=== PATIENT | male | born 1940 | race Caucasian/White ===

== ENCOUNTER 2018-03-03 17:18 | Emergency (ER) | payer MEDICARE ==
[2018-03-03] MEDS ORDERED: solu-MEDROL 125 MG (18:24)
[2018-03-03] MEDS ORDERED: Rocephin 1000 MG INJ (18:24)
[2018-03-03] MEDS: solu-MEDROL 125 MG IM (18:31)
[2018-03-03] MEDS: Rocephin 1000 MG INJ IM (18:31)
== END 2018-03-03 19:18 | disposition home or self-care (01) ==
LOC: ED 17:18
CPT/HCPCS: 96372; J0696; J2930

== ENCOUNTER 2018-03-26 11:11 | Observation (INO) | payer MEDICARE ==
[2018-03-26] MEDS ORDERED: MORPHINE SULFATE 4 MG INJ IM ONE ×3 (11:37→12:59)
[2018-03-26] MEDS ORDERED: Phenergan 25 MG INJ IM ONE (11:37)
--- NOTE | 2018-03-26 11:43 | ERPHSYRPT ---
- History of Present Illness Time Seen by Provider: 03/26/18 11:38 Source: patient Physician History: 77-year-old white male with history of CVA, cataracts, high blood pressure, COPD , sleep apnea, diabetes. Patient arrives with complaint of pain in his lower back described as sharp radiating across the back symptoms since yesterday. Patient states he was sitting on the stool, turned and twisted his back he complains of the above noted pain. Past medical history includes CVA, cataracts, high blood pressure, COPD, sleep apnea, diabetes type 2, osteoarthritis, GERD, GI bleed, hemorrhoids, polyps, prostate problems. Past surgical history includes cardiac catheter, cholecystectomy, orthopedic surgery, arthroscopy cartilage removed from the right knee, liver surgery, infection trimmed off of his liver secondary to gallbladder , Eardrum surgery Social history former smoker Patient states he saw a chiropractor yesterday. Patient states he took some Flexeril and Flushing which she had at home. Inspect was examined on this patient patient last filled the prescription for [place] 5/325 in August of this year. Timing/Duration: yesterday Allergies/Adverse Reactions: amlodipine besylate [From Evan] Allergy (Intermediate, Verified 03/26/18 11:33) Swelling LEG SWELLING olmesartan medoxomil [From Evan] Allergy (Intermediate, Verified 03/26/18 11:33) Swelling LEG SWELLING clonidine Allergy (Unknown, Verified 03/26/18 11:33) Swelling TONGUE SWELLING Iodinated Contrast- Oral and IV Dye Adverse Reaction (Unknown, Verified 11:33) will damage kidneys- do not give without hydration Home Medications: Bumetanide 1 mg PO DAILY #0 07/17/12 [History] Tamsulosin HCl 0.4 mg [Flomax 0.4 MG] 0.4 mg PO DAILY #0 07/17/12 [History ] Insulin Glargine,Hum.rec.anlog [Lantus] 76 unit SQ HS #0 07/18/12 [History] Insulin Lispro [Humalog] 40 - 44 unit SQ BREAKFAST #0 07/18/12 [History] Insulin Lispro [Humalog] 40 - 44 unit SQ LUNCH #0 07/18/12 [History] Insulin Lispro [Humalog] 50 units SQ DINNER #0 07/18/12 [History] Spironolactone 25 mg [Aldactone 25 MG] 25 mg PO DAILY 10/15/13 [History] Allopurinol 100 mg [Zyloprim 100 mg] 200 mg PO QAM 03/21/16 [History] Atorvastatin Calcium [Lipitor] 40 mg PO DAILY 03/21/16 [History] Hydrocodone Bit/Acetaminophen [Hydrocodon-Acetaminophn 10-325] 1 each PO Q6HPRN PRN 03/21/16 [History] Lisinopril 5 mg [Zestril 5 MG] 5 mg PO DAILY 03/21/16 [History] Hx Tetanus, Diphtheria Vaccination/Date Given: Yes Hx Influenza Vaccination/Date Given: No Hx Pneumococcal Vaccination/Date Given: Yes - Review of Systems Constitutional: No Fever, No Chills Eyes: No Symptoms Ears, Nose, & Throat: No Symptoms Respiratory: No Cough, No Dyspnea Cardiac: No Chest Pain, No Edema, No Syncope Abdominal/Gastrointestinal: No Abdominal Pain, No Nausea, No Vomiting, No Diarrhea Genitourinary Symptoms: No Dysuria Musculoskeletal: Back Pain Skin: No Rash Neurological: No Dizziness, No Focal Weakness, No Sensory Changes Psychological: No Symptoms Endocrine: No Symptoms All Other Systems: Reviewed and Negative - Past Medical History Pertinent Past Medical History: No Neurological History: Stroke ENT History: Cataracts Cardiac History: Hypertension Respiratory History: COPD, Sleep Apnea Endocrine Medical History: Diabetes Type II Musculoskeletal History: Osteoarthritis GI Medical History: GERD, GI Bleed, Hemorrhoids, Polyps History: Other Psycho-Social History: No Pertinent History Male Reproductive Disorders: Prostate Problems Other Medical History: CVA 7-10 years ago - Past Surgical History Past Surgical History: Yes Neuro Surgical History: No Pertinent History Cardiac: Cardiac Catheterization Respiratory: No Pertinent History Gastrointestinal: Cholecystectomy Genitourinary: No Pertinent History Musculoskeletal: Orthopedic Surgery Male Surgical History: No Pertinent History Other Surgical History: arthroscopy with cartlage removal of right knees,. surgery done on liver- infection trimmed off liver from complications from gallbadder removal. right ear drum/canal/ear bone surgery 03/01/16 - Social History Smoking Status: Former smoker How long have you smoked: 10years Exposure to second hand smoke: No Drug Use: none Patient Lives Alone: No - Nursing Vital Signs Nursing Vital Signs: Initial Vital Signs Temperature 97.7 F 03/26/18 11:29 Pulse Rate 104 H 03/26/18 11:29 Respiratory Rate 104 H 03/26/18 11:29 Blood Pressure 195/90 03/26/18 11:29 O2 Sat by Pulse Oximetry 95 03/26/18 11:29 Pain Scale Pain Intensity [] 8 Pain Intensity 6 - Physical Exam General Appearance: other (well-developed obese white male, alert oriented 3) Eye Exam: PERRL/EOMI, eyes nml inspection Ears, Nose, Throat Exam: normal ENT inspection, TMs normal, pharynx normal, moist mucous membranes Neck Exam: normal inspection, non-tender, supple, full range of motion Respiratory Exam: normal breath sounds, lungs clear, No respiratory distress Cardiovascular Exam: regular rate/rhythm, normal heart sounds, normal peripheral pulses Gastrointestinal/Abdomen Exam: soft, normal bowel sounds, No tenderness, No mass Back Exam: other (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 No new acute lumbar spine compression fracture. However there is new grade 1 spondylolisthesis of L3 over L4 and stable grade 1 anterior spondylolisthesis of L4 over L5. No gross spondylolysis has seen. However there is moderate posterior facet joint arthropathy at the lower 3 lumbar interspace levels. 2. There is mild degenerative disc disease at L1-L2 and moderate to marked degenerative disc disease at L2-L3. This has slightly progressed as compared to December 28, 2016. 3. 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 On the standing AP minimal right lateral subluxation of with respect L1 and L3 with respect to L4. This may be due to a combination of the degenerative spondylosis and stress reaction from the mild rotary dextroscoliosis.) Ordered Tests: Active Orders 24 hr Category Date Time Status LUMBAR LIMITED (2 OR 3 VIEWS) Stat Exams 03/26/18 12:21 Completed Medication Summary Discontinued Medications Generic Name Dose Route Start Last Admin Trade Name Carlita PRN Reason Stop Dose Admin Morphine Sulfate 4 mg 03/26/18 11:37 03/26/18 11:45 Morphine Sulfate 4 Mg Inj IM 03/26/18 11:38 4 mg STAT ONE Administration Morphine Sulfate Confirm 03/26/18 11:44 Morphine Sulfate 4 Mg Inj Administered 03/26/18 11:45 Dose 4 mg .ROUTE .STK-MED ONE Morphine Sulfate 4 mg 03/26/18 12:25 03/26/18 12:27 Morphine Sulfate 4 Mg Inj IV 03/26/18 12:26 Not Given STAT ONE Morphine Sulfate 4 mg 03/26/18 12:26 03/26/18 12:30 Morphine Sulfate 4 Mg Inj IM 03/26/18 12:27 4 mg STAT ONE Administration Morphine Sulfate Confirm 03/26/18 12:29 Morphine Sulfate 4 Mg Inj Administered 03/26/18 12:30 Dose 4 mg .ROUTE .STK-MED ONE Morphine Sulfate 4 mg 03/26/18 12:59 03/26/18 13:16 Morphine Sulfate 4 Mg Inj IM 03/26/18 13:00 4 mg STAT ONE Administration Morphine Sulfate Confirm 03/26/18 13:13 Morphine Sulfate 4 Mg Inj Administered 03/26/18 13:14 Dose 4 mg .ROUTE .STK-MED ONE Orphenadrine Citrate 60 mg 03/26/18 12:59 03/26/18 13:17 Norflex 60 Mg/2 Ml IM 03/26/18 13:00 60 mg STAT ONE Administration Orphenadrine Citrate Confirm 03/26/18 13:13 Norflex 60 Mg/2 Ml Administered 03/26/18 13:14 Dose 60 mg .ROUTE .STK-MED ONE Promethazine HCl 25 mg 03/26/18 11:37 03/26/18 11:45 Phenergan 25 Mg Inj IM 03/26/18 11:38 25 mg STAT ONE Administration Promethazine HCl Confirm 03/26/18 11:44 Phenergan 25 Mg Inj Administered 03/26/18 11:45 Dose 25 mg .ROUTE .STK-MED ONE - Progress Progress: improved Progress Note: 03/26/18 13:00 77-year-old white male with history of CVA, cataracts, high blood pressure, COPD , sleep apnea, diabetes. Arrives with complaint of low back pain worse with movement located in midline and across the back lumbar region after turning while using the toilet yesterday. He apparently has been seen by a chiropractor yesterday he states he took some Flushing at home which he has he states he has this dedication at home and has approximately 30 pills left. He also took 2 Flexeril tablets yesterday he states he is out of this. Patient has no neurologic findings he is tender with palpation in the low lumbar region bilaterally and over midline also tender in the area with the movement. Patient has full range of motion to all extremities. X-ray of the patient's lumbar series is remarkable for grade 1 spondylolisthesis of L3 over L4 which appears to be new and stable grade 1 anterior spondylolisthesis of L4 over L5 there is no gross spondylolysis. There is moderate posterior facet joint arthropathy at the lower 3 lumbar interspace levels. There is also mild degenerative disc disease at L1-L2 and moderate to marked edema degenerative disc disease at L2-L3 this appears to have slightly progressed since December 28, 2016. Patient also has mild dextro scoliosis centered at L2-L3 and on the standing AP view there is minimal right lateral subluxation of L2 with respect to L1 and L3 with respect to L4 this may be due to a combination of the degenerative spondylosis and stress reaction from the mild rotary dextroscoliosis. Patient has been given morphine a total of 12 mg IM. In 4 mg increments the last one has just been ordered. I had planned to send the patient home however he states that he doesn't think that he can take care of himself at home or get around and is worried about pain control at home. I've discussed the patient's case with Dr. Wade who is covering for Dr. Tabares. Will place patient on observation. Will write for morphine for pain Phenergan for nausea. Will obtain CBC CMP UA on the floor. - Departure Time of Disposition: 13:26 Departure Disposition: Observation Clinical Impression: Back pain Qualifiers: Back pain location: low back pain Chronicity: acute Back pain laterality: bilateral Sciatica presence: without sciatica Qualified Code(s): M54.5 - Low back pain Condition: Fair Critical Care Time: No Referrals: ASHISH TABARES [Primary Care Provider] - Instructions: Low Back Pain (DC)
[2018-03-26] MEDS ORDERED: MORPHINE SULFATE 4 MG INJ ONE ×3 (11:44→13:13)
[2018-03-26] MEDS ORDERED: Phenergan 25 MG INJ ONE (11:44)
[2018-03-26] MEDS ORDERED: MORPHINE SULFATE 4 MG INJ IV ONE (12:25)
--- NOTE | 2018-03-26 12:57 | XRAY ---
Exam: Standing 3 view lumbar spine series from 03/26/2018. Five-view lumbar spine series from 12/28/2016. Indication: 77-year-old male with back pain, no known injury. Limited movement. Findings: Standing AP and 2 standing lateral radiographs were obtained. There are 5 [id number] lumbar-type vertebra. There is a mild rotary dextroscoliosis centered at L2-L3. Surgical clips consistent with prior cholecystectomy are noted. I note at least moderate narrowing of the L2-L3 interspace height, some calcification within the L2-L3 disc, and mild anterior lateral and posterior vertebral endplate spurring indicative of moderate to marked degenerative disc disease at this level. This has slightly progressed as compared to 12/28/2016. An acute lumbar spine compression fracture is not seen. However, I note grade 1 anterior spondylolisthesis of L3 over L4 and L4 over L5. This is unchanged at L4-L5, but new at L3-L4. A definite spondylolysis is not seen, although there is advanced facet joint arthropathy at the lower 3 lumbar interspace levels. The lower 3 lumbar interspace heights are fairly well-maintained representing no change. Mild anterior lateral vertebral endplate spurring is seen at the lower 3 lumbar interspaces. I note moderate anterior lateral vertebral endplate spurring at L1-L2. There is also minimal right lateral subluxation of L2 with respect to L1 and L3 with respect to L4 on the AP standing view, probably due to the degenerative disc/joint disease and perhaps stress reaction from the rotary dextroscoliosis. Some vascular calcification is seen within the distal abdominal aorta representing no change. Impression: 1. The current study was obtained in the upright projection. I see no acute lumbar spine compression fracture. However, there is new grade 1 spondylolisthesis of L3 over L4 and stable grade 1 anterior spondylolisthesis of L4 over L5. No gross spondylolysis is seen. However, there is moderate posterior facet joint arthropathy at the lower 3 lumbar interspace levels. 2. There is mild degenerative disc disease at L1-L2 and moderate to marked degenerative disc disease at L2-L3. I believe this has slightly progressed as compared to 12/28/2016. 3. Mild rotary dextroscoliosis centered at L2-L3. On the AP standing view, I also note minimal right lateral subluxation of L2 with respect to L1 and L3 with respect to L4. This may be due to a combination of the degenerative spondylosis and stress reaction from the mild rotary dextroscoliosis.
[2018-03-26] MEDS ORDERED: Norflex 60 MG/2 ML IM ONE (12:59)
[2018-03-26] MEDS ORDERED: Norflex 60 MG/2 ML ONE (13:13)
[2018-03-26] MEDS ORDERED: Phenergan 25 MG INJ IV PRN (14:50)
[2018-03-26] MEDS ORDERED: NovoLIN R SQ PRN (14:50)
[2018-03-26 15:24] LABS: BASOPHIL % 0.9 % (0.0-0.4); Basophil (Absolute #) 0.07 (0-0.4); Eosinophil % 8.4 % (0.00-5.0); Eosinophil (Absolute #) 0.68 (0-0.5); Granulocyte Absolute (ANC) 4.58 (1.4-6.9); Granulocytes % 56.8 % (36.0-66.0); Hematocrit 42.5 % (42-50); Hemoglobin 14.4 gm/dl (12.5-18.0); Lymphocyte (Absolute #) 1.94 (1.0-4.6); Mean Cell Volume 90.6 fl (78-100); Mean Corpuscular Hemoglobin 30.7 pg (26-32); Mean Corpuscular Hgb Concent. 33.9 g/dl (32-36); Mean Platelet Volume 8.7 fl (6-9.5); Monocytes % 9.9 % (0.0-12.0); Platelet Count 257 K/mm3 (150-450); Red Blood Count 4.69 M/mm3 (4.1-5.6); Red Cell Distribution Width 13.5 % (11.5-14.0); White Blood Count 8.1 K/mm3 (4.0-10.5)
[2018-03-26 15:34] LABS: ALBUMIN 4.4 g/dL (3.5-5.0); ANION GAP 14.1 MEQ/L (5-15); BILIRUBIN,TOTAL 0.7 mg/dL (0.2-1.3); Creatinine 1 1.5 mg/dL (0.66-1.25); Potassium 4.5 mmol/L (3.5-5.1); Total Protein 7.3 g/dL (6.3-8.2)
[2018-03-26] MEDS: MORPHINE SULFATE 4 MG INJ IV PRN ×2 (17:06→21:56)
[2018-03-26] MEDS ORDERED: LIORESAL 10 MG PO PRN (19:08)
--- NOTE | 2018-03-26 19:15 | PCM.HP ---
History of Present Illness - Chief Complaint Chief Complaint: back pain Date: 03/26/18 History of Present Illness: is a 77 year old male. with intractable back pain that started yesterday. he sat down on the toilet in his normal state of health and after he had been sitting he turned a little and had sudden onset of sever pain in his lower back radiating out both sides of his low back but not down his legs. he has chronic burning pain on the left upper lateral leg and chronic knee pain but no new numbness or weakness in the legs. he had to be helped to stand from the toilet and is unable to walk unassisted. He tried to take 2 pain pills he had left over from august that were [place] 5/325 + a flexaril and was able to get over to his chiropractor who was not able to help it too much yesterday. He tried to sleep last night but was unable to walk on his own and had to be assisted by his family so they brought him to the ED. he was given several rounds of iv pain medications with minimal relief and was still unable to stand. He denies any difficulty urination or difficulty with bowel movement and no incontinence. He has no numbness in his perineum area. He has not had any recent fever chills or weight loss. 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 - Review of Systems Constitutional: No Fever, No Chills Eyes: No Symptoms Ears, Nose, & Throat: No Symptoms Respiratory: No Cough, No Short Of Breath Cardiac: No Chest Pain, No Edema, No Syncope Abdominal/Gastrointestinal: No Abdominal Pain, No Nausea, No Vomiting, No Diarrhea Genitourinary Symptoms: No Dysuria Musculoskeletal: No Back Pain, No Neck Pain Skin: No Rash Neurological: No Dizziness, No Focal Weakness, No Sensory Changes Psychological: No Symptoms Endocrine: No Symptoms Hematologic/Lymphatic: No Symptoms Immunological/Allergic: No Symptoms Medications & Allergies Home Medications: Home Medication List Bumetanide 1 mg PO DAILY #0 07/17/12 [History Confirmed 03/26/18] Tamsulosin HCl 0.4 mg [Flomax 0.4 MG] 0.4 mg PO DAILY #0 07/17/12 [ History Confirmed 03/26/18] Insulin Glargine,Hum.rec.anlog [Lantus] 76 unit SQ HS #0 07/18/12 [History Confirmed 03/26/18] Insulin Lispro [Humalog] 40 - 44 unit SQ BREAKFAST #0 07/18/12 [History Confirmed 03/26/18] Insulin Lispro [Humalog] 40 - 44 unit SQ LUNCH #0 07/18/12 [History Confirmed ] Insulin Lispro [Humalog] 50 units SQ DINNER #0 07/18/12 [History Confirmed 03/26] Spironolactone 25 mg [Aldactone 25 MG] 25 mg PO DAILY 10/15/13 [History Confirmed 03/26/18] Allopurinol 100 mg [Zyloprim 100 mg] 200 mg PO QAM 03/21/16 [History Confirmed 03/26/18] Atorvastatin Calcium [Lipitor] 40 mg PO DAILY 03/21/16 [History Confirmed ] Hydrocodone Bit/Acetaminophen [Hydrocodon-Acetaminophn 10-325] 1 each PO Q6HPRN PRN 03/21/16 [History Confirmed 03/26/18] Lisinopril 5 mg [Zestril 5 MG] 5 mg PO DAILY 03/21/16 [History Confirmed 03/26/18] Allergies/Adverse Reactions: Allergies Allergy/AdvReac Type Severity Reaction Status Date / Time amlodipine besylate Allergy Intermediate Swelling Verified 03/26/18 11:33 [From Evan] olmesartan medoxomil Allergy Intermediate Swelling Verified 03/26/18 11:33 [From Evan] clonidine Allergy Unknown Swelling Verified 03/26/18 11:33 Iodinated Contrast- Oral and AdvReac Unknown will Verified 03/26/18 11:33 IV Dye damage kidneys- do not give without hydration - Past Medical History Past Medical History: No Neurological History: Stroke ENT History: Cataracts Cardiac History: Hypertension Respiratory History: COPD, Sleep Apnea Endocrine Medical History: Diabetes Type II Musculoskelatal History: Osteoarthritis GI Medical History: GERD, GI Bleed, Hemorrhoids, Polyps History: Other Pyscho-Social History: No Pertinent History Male Reproductive Disorders: Prostate Problems Comment: CVA 7-10 years ago - Past Surgical History Past Surgical History: Yes Neuro Surgical History: No Pertinent History Cardiac History: Cardiac Catheterization Respiratory Surgery: No Pertinent History GI Surgical History: Cholecystectomy Genitourinary Surgical Hx: No Pertinent History Musculskeletal Surgical Hx: Orthopedic Surgery Male Surgical History: No Pertinent History Other Surgical History: arthroscopy with cartlage removal of right knees,. surgery done on liver- infection trimmed off liver from complications from gallbadder removal. right ear drum/canal/ear bone surgery 03/01/16 - Social History Smoking Status: Former smoker How long have you smoked: 10years Exposure to second hand smoke: No Alcohol: None Drug Use: none - Physical Exam Vital Signs: Vital Signs - 24 hr Temp Pulse Resp BP Pulse Ox 03/26/18 17:45 93 L 03/26/18 17:35 88 L 03/26/18 15:30 97.7 F 93 H 16 137/64 96 03/26/18 15:25 94 L 03/26/18 15:14 98.2 F 86 18 181/84 94 L 03/26/18 15:13 98.2 F 86 18 181/84 94 L 03/26/18 14:01 95 03/26/18 13:44 93 H 16 137/64 96 03/26/18 12:25 95 H 18 184/101 95 03/26/18 11:29 97.7 F 104 H 104 H 195/90 95 General Appearance: no apparent distress, alert, obese Neurologic Exam: alert, oriented x 3, cooperative, normal mood/affect, nml cerebellar function, sensation nml, No motor deficits Eye Exam: PERRL/EOMI, eyes nml inspection Ears, Nose, Throat Exam: normal ENT inspection, TMs normal, pharynx normal, moist mucous membranes Neck Exam: normal inspection, non-tender, supple, full range of motion Respiratory Exam: normal breath sounds, lungs clear, No respiratory distress Cardiovascular Exam: regular rate/rhythm, normal heart sounds, normal peripheral pulses Gastrointestinal/Abdomen Exam: soft, normal bowel sounds, No tenderness, No mass Back Exam: normal inspection, normal range of motion, other (point tenderness over the L2/L3 area no redness warmth or deformities), No CVA tenderness, No vertebral tenderness Extremity Exam: normal inspection, normal range of motion, pelvis stable Skin Exam: normal color, warm, dry, No rash Lymphatic Exam: No adenopathy Results - Labs Lab/Micro Results: Accuchecks Date 03/26/18 Time 16:30 Accucheck Value: 134 Accucheck Value: 148 Lab Results-Last 24 Hours 03/26/18 03/26/18 03/26/18 Range/Units 15:10 15:10 15:30 WBC 8.1 (4.0-10.5) K/mm3 RBC 4.69 (4.1-5.6) M/mm3 Hgb 14.4 (12.5-18.0) gm/dl Hct 42.5 (42-50) % MCV 90.6 (78-100) fl MCH 30.7 (26-32) pg MCHC 33.9 (32-36) g/dl RDW 13.5 (11.5-14.0) % Plt Count 257 (150-450) K/mm3 MPV 8.7 (6-9.5) fl Gran % 56.8 (36.0-66.0) % Eos # (Auto) 0.68 H (0-0.5) Absolute Lymphs (auto) 1.94 (1.0-4.6) Absolute Monos (auto) 0.80 (0.0-1.3) Lymphocytes % 24.0 (24.0-44.0) % Monocytes % 9.9 (0.0-12.0) % Eosinophils % 8.4 H (0.00-5.0) % Basophils % 0.9 (0.0-0.4) % Absolute Granulocytes 4.58 (1.4-6.9) Basophils # 0.07 (0-0.4) Sodium 141 (137-145) mmol/L Potassium 4.5 (3.5-5.1) mmol/L Chloride 105 (98-107) mmol/L Carbon Dioxide 26 (22-30) mmol/L Anion Gap 14.1 (5-15) MEQ/L BUN 28 H (9-20) mg/dL Creatinine 1.50 H (0.66-1.25) mg/dL Estimated GFR 48.4 ML/MIN Glucose 149 H (74-106) mg/dL Hemoglobin A1c 7.79 H (4.5-6.0) % Calcium 10.0 (8.4-10.2) mg/dL Total Bilirubin 0.70 (0.2-1.3) mg/dL AST 135 H (17-59) U/L ALT 85 H (0-50) U/L Alkaline Phosphatase 98 (38-126) U/L Serum Total Protein 7.3 (6.3-8.2) g/dL Albumin 4.4 (3.5-5.0) g/dL Accuchecks Date 03/26/18 Time 16:30 Accucheck Value: 134 Accucheck Value: 148 - Radiology Impressions Radiology Exams & Impressions: Radiology Procedures Category Date Time Status LUMBAR LIMITED (2 OR 3 VIEWS) Stat Exams 03/26/18 12:21 Completed - Other Procedures and Tests Respiratory Therapy 03/26/18 15:27 Respiratory Therapy Assessment DAILY 03/26/18 17:43 Oxygen NASAL CANNULA 2 lpm Assessment/Plan (1) Intractable back pain Current Visit: Yes Status: Acute Assessment & Plan: he reports previous similar episodes that were not as severe that improved with pain medication and time however he is not able to adequatly ambulate due to the pain currently. will work on pain control tonight continue the iv morphine prn ice to the back add baclofen prn and gabapentin trial avoiding steroid now with his diabetes if not improving will consider CT of the lumbar spine he is not likely an MRI candidate at our facility due to his size will check esr in am and if high considering further imaging as well. Code(s): M54.9 - DORSALGIA, UNSPECIFIED (2) Unsteady gait Current Visit: Yes Status: Acute Code(s): R26.81 - UNSTEADINESS ON FEET (3) Type 2 diabetes mellitus Current Visit: Yes Status: Acute (4) Essential hypertension Current Visit: Yes Status: Acute Code(s): I10 - ESSENTIAL (PRIMARY) HYPERTENSION
[2018-03-26] MEDS ORDERED: Norco 10/325 MG Tablet PO PRN (19:25)
[2018-03-26] MEDS: Zestril 5 MG PO SCH (21:44)
[2018-03-26] MEDS: NEURONTIN 300 MG PO SCH (21:44)
[2018-03-26] MEDS: ZYLOPRIM 100 MG PO SCH (21:45)
[2018-03-26] MEDS: ZOCOR 20MG PO SCH (21:45)
[2018-03-26] MEDS: Flomax 0.4 MG PO SCH (21:45)
[2018-03-26] MEDS: Aldactone 25 MG PO SCH (21:46)
[2018-03-26] MEDS: ENOXAPARIN SODIUM SQ SCH (21:46)
[2018-03-26] MEDS ORDERED: Lantus Insulin SQ SCH (22:00)
[2018-03-27] MEDS: MORPHINE SULFATE 4 MG INJ IV PRN (03:47)
[2018-03-27 05:29] LABS: BASOPHIL % 1.1 % (0.0-0.4); Basophil (Absolute #) 0.07 (0-0.4); Eosinophil % 8.4 % (0.00-5.0); Eosinophil (Absolute #) 0.53 (0-0.5); Granulocyte Absolute (ANC) 3.24 (1.4-6.9); Granulocytes % 51.3 % (36.0-66.0); Hematocrit 38.1 % (42-50); Hemoglobin 12.8 gm/dl (12.5-18.0); Lymphocyte (Absolute #) 1.62 (1.0-4.6); Lymphocytes % 25.7 % (24.0-44.0); Mean Cell Volume 91.8 fl (78-100); Mean Corpuscular Hemoglobin 30.8 pg (26-32); Mean Corpuscular Hgb Concent. 33.6 g/dl (32-36); Mean Platelet Volume 8.9 fl (6-9.5); Monocyte (Absolute #) 0.85 (0.0-1.3); Monocytes % 13.5 % (0.0-12.0); Platelet Count 228 K/mm3 (150-450); Red Blood Count 4.15 M/mm3 (4.1-5.6); Red Cell Distribution Width 13.4 % (11.5-14.0); White Blood Count 6.3 K/mm3 (4.0-10.5)
[2018-03-27 07:17] LABS: Erythrocyte Sedimentation Rate 26 mm/hr (0-15)
[2018-03-27] MEDS ORDERED: NovoLOG Insulin SQ SCH ×3 (07:30→17:00)
[2018-03-27] MEDS ORDERED: NON-FORMULARY ITEM (Insulin Lispro 0 UNIT) SQ SCH ×2 (08:00→12:00)
[2018-03-27] MEDS ORDERED: OXYCODONE-ACETAMINOPHEN 10-325 PO PRN (08:15)
--- NOTE | 2018-03-27 08:22 | PCM.DCORD ---
- Discharge Discharge Date: 03/27/18 Condition: Fair Prescriptions: New Cyclobenzaprine HCl [Flexeril] 10 mg PO TID #90 tablet Oxycodone / APAP 10/325 mg [Oxycodone-Acetaminophen 10-325] 1 tab PO Q4H PRN PRN #30 tablet MDD 4 PRN Reason: Pain Continue Tamsulosin HCl 0.4 mg [Flomax 0.4 MG] 0.4 mg PO DAILY #0 Bumetanide 1 mg PO DAILY #0 Insulin Glargine,Hum.rec.anlog [Lantus] 76 unit SQ HS #0 Insulin Lispro [Humalog] 50 units SQ DINNER #0 Insulin Lispro [Humalog] 40 - 44 unit SQ LUNCH #0 Insulin Lispro [Humalog] 40 - 44 unit SQ BREAKFAST #0 Spironolactone 25 mg [Aldactone 25 MG] 25 mg PO DAILY Lisinopril 5 mg [Zestril 5 MG] 5 mg PO DAILY Atorvastatin Calcium [Lipitor] 40 mg PO DAILY Allopurinol 100 mg [Zyloprim 100 mg] 200 mg PO QAM Discontinued Hydrocodone Bit/Acetaminophen [Hydrocodon-Acetaminophn 10-325] 1 each PO Q6HPRN PRN PRN Reason: Pain Additional Instructions: needs set up for outpatient Physical Therapy and referal to pain management Follow up with: ASHISH SARAVIA [Primary Care Provider] - 1 Week
[2018-03-27] MEDS ORDERED: CHLORASEPTIC SPRAY 180 ML PO PRN (08:52)
[2018-03-27] MEDS: ZOCOR 20MG PO SCH (09:21)
[2018-03-27] MEDS: NEURONTIN 300 MG PO SCH (09:22)
[2018-03-27] MEDS: Flomax 0.4 MG PO SCH (09:23)
[2018-03-27] MEDS: ENOXAPARIN SODIUM SQ SCH (09:24)
[2018-03-27] MEDS: Zestril 5 MG PO SCH (09:25)
[2018-03-27] MEDS: Aldactone 25 MG PO SCH (09:25)
[2018-03-27] MEDS: ZYLOPRIM 100 MG PO SCH (09:25)
--- NOTE | 2018-03-27 11:55 | SSS ---
DISCHARGE DIAGNOSIS: ACUTE EXACERBATION OF CHRONIC BACK DERANGEMENT. HISTORY: The patient is a 77 year-old white male patient who was apparently on the commode when he was getting up he twisted and apparently had an exacerbation of his back pain causing him to have to come into the hospital emergency room. The patient had been seen previously by his chiropractor who felt that he could not help him with his pain issues. The patient has been on [place] which he has had at home from a knee surgery. He has been using it occasionally for his low back pain. The patient is morbidly obese. PAST MEDICAL HISTORY: His medical problems otherwise include diabetes mellitus type 2, chronic lymphedema, hyperlipidemia, hypertension. HOME MEDICATIONS: Bumex 1 mg a day, Flomax 0.4 mg a day. He is on 76 units of insulin Lantus in the evening and 40 units before each meal of Humalog, Spironolactone 25 mg daily, Allopurinol 100 mg two tablets in the morning, Lipitor 40 mg a day, [place] 10/325 mg PRN and lisinopril 5 mg a day. ALLERGIES: STARR, CLONIDINE, IV CONTRAST DYE. PHYSICAL EXAMINATION: VITAL SIGNS: On admission showed temperature 97.7F, pulse 104, blood pressure 195/90. O2 saturation 95% on room air. HEENT: Normocephalic, atraumatic. Pupils equal round reactive to light. Extraocular movements intact. Oropharynx is pink and moist. NECK: Supple without lymphadenopathy, thyromegaly or JVD. CHEST: Clear to auscultation with good air movement bilaterally. HEART: Currently regular rate and rhythm without murmurs, rubs or gallops. ABDOMEN: Soft. No palpable masses. EXTREMITIES: Without clubbing or cyanosis. There is 2+ edema roughly half way up the garza. NEUROLOGIC: He is alert and oriented x3 with no obvious focal deficits. LAB DATA AND TESTS: X-ray evaluation showed no acute lumbar spine compression fracture however there is new grade I spondylolisthesis of L3 over L4, stable grade I of L4 over L5. There is also noted marked degenerative disc disease at L2-L3 slightly progressed from 12/28/2017. The patient's lab studies otherwise showed a normal CBC with hemoglobin 12.8, PLT count 228,000, white blood cell count 6,600. A1C was 7.79. Metabolic panel showed random glucose of 149, BUN 28, creatinine 1.5. Electrolytes were normal. However liver enzymes were slightly elevated with AST 135, ALT 85. HOSPITAL COURSE: The patient was admitted to the medicine renteria and given morphine and steroid medications for reducing inflammation. He was better by the next morning sitting up in a chair taking breakfast. We had a long discussion with the patient about his management from here. We will discharge home on Percocet 10/325 mg PRN, Flexeril 10 mg t.i.d. PRN. 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 We will obtain a MRI prior to his discharge home for possible need for surgical intervention for staging. We will also check his liver enzymes and if they are somewhat elevated I suspect it may be due to statin medications but we will rule out hepatitis B or C. The patient is also given an appointment to see me and return to my office in one week. If he is unable to care for himself in the home situation once he returns home we will consider sending to rehab.
[2018-03-27 12:46] VITALS: BP 104/50; PULSE 81; O2SAT 94
[2018-03-27] MEDS ORDERED: INSULIN LISPRO 50 UNIT SQ SCH (17:00)
[2018-03-28 15:12] LABS: HEPATITIS B VIRUS CORE TOT AB Non Reactive (Non Reactive)
[2018-03-28 15:13] LABS: HEPATITIS C VIRUS ANTIBODY Non Reactive (Non Reactive); Hepatitis B Surface Antigen Non Reactive (Non Reactive)
== END 2018-03-27 15:30 | disposition home or self-care (01) ==
LOC: ED 11:11 → MED SURG 14:47
PROVIDERS: ADMIT Family Medicine; ATTEND Family Medicine
DX: E11.9 Type 2 diabetes mellitus without complications (principal); Z79.4 Long term (current) use of insulin; M53.86 Other specified dorsopathies, lumbar region; I10 Essential (primary) hypertension; J44.9 Chronic obstructive pulmonary disease, unspecified; G47.30 Sleep apnea, unspecified; Z86.73 Personal history of transient ischemic attack (TIA), and cerebral infarction without residual deficits; M19.90 Unspecified osteoarthritis, unspecified site; K21.9 Gastro-esophageal reflux disease without esophagitis; Z79.899 Other long term (current) drug therapy
CPT/HCPCS: 36415; 72100; 80053; 80074; 82962; 83036; 85025; 85652; 94762; 96372; 99285; G0378; J1650; J2270; J2360; J2550; A9270-GY

== ENCOUNTER 2020-03-05 15:50 | Emergency (ER) | payer MEDICARE ==
[2020-03-05 16:22] VITALS: O2SAT 95
--- NOTE | 2020-03-05 16:36 | ERPHSYRPT ---
- History of Present Illness Time Seen by Provider: 03/05/20 16:12 Source: patient Exam Limitations: no limitations Patient Subjective Stated Complaint: Pt stated that he went to stand up and his right lower leg felt like it had a mik horse and he couldn't stand on it, pt unable to rotate self while standing Triage Nursing Assessment: Pt brought to the ER by his son, hypertensive, recently diagnosed with COPD, pulses normal, capillary refill normal, no visual differences in the right leg compared to the left, rates pain 10/08, skin n/c/d Physician History: 79 years old male with history of COPD presented in the ER with chief complaint of right leg pain started prior to arrival. Patient reports he is tried to stand up and felt charley horses in her right calf moderate intensity dull aching pain with radiation up in the thigh, aggravated with weightbearing and better with being still. Denies any associated swelling, fall trauma to the lower extremity. No fever or chills reported. Not taking any blood thinners. No history of DVT in the past. Occurred: just prior to arrival Lower Extremities Pain: leg: right Modifying Factors: Improves With: movement Associated Symptoms: none Allergies/Adverse Reactions: amlodipine besylate [From Evan] Allergy (Intermediate, Verified 03/05/20 16:22) Swelling LEG SWELLING olmesartan medoxomil [From Evan] Allergy (Intermediate, Verified 03/05/20 16:22) Swelling LEG SWELLING clonidine Allergy (Unknown, Verified 03/05/20 16:22) Swelling TONGUE SWELLING Iodinated Contrast Media Adverse Reaction (Unknown, Verified 03/05/20 16:22) will damage kidneys- do not give without hydration Home Medications: Bumetanide 1 mg PO DAILY #0 07/17/12 [History] Tamsulosin HCl 0.4 mg [Flomax 0.4 MG] 0.4 mg PO DAILY #0 07/17/12 [History] Insulin Glargine,Hum.rec.anlog [Lantus] 76 unit SQ HS #0 07/18/12 [History] Insulin Lispro [Humalog] 50 - 60 units SQ PC #0 07/18/12 [History] Spironolactone 25 mg [Aldactone 25 MG] 25 mg PO DAILY 10/15/13 [History] Allopurinol 100 mg [Zyloprim 100 mg] 200 mg PO QAM 03/21/16 [History] Atorvastatin Calcium [Lipitor] 40 mg PO DAILY 03/21/16 [History] Albuterol Sulfate [Albuterol Sulfate Hfa] 1 inh PO UD 03/05/20 [History] Losartan Potassium 50 mg [Cozaar 50 MG] 50 mg PO DAILY 03/05/20 [History] Meclizine HCl 25 mg [Antivert 25 mg] 25 mg PO BID 03/05/20 [History] Umeclidinium Brm/Vilanterol Tr [Anoro Ellipta 62.5-25 Mcg INH] 1 inh PO UD [History] carvediloL [Carvedilol] 25 mg PO DAILY 03/05/20 [History] Hx Tetanus, Diphtheria Vaccination/Date Given: Yes Hx Influenza Vaccination/Date Given: No Hx Pneumococcal Vaccination/Date Given: Yes Travel Risk - International Travel Have you traveled outside of the country in past 3 weeks: No - Coronavirus Screening Are you exhibiting any of the following symptoms?: No Close contact with a COVID-19 positive Pt in past 14-21 Days: No - Review of Systems Constitutional: No Symptoms Eyes: No Symptoms Ears, Nose, & Throat: No Symptoms Respiratory: No Symptoms Cardiac: No Symptoms Abdominal/Gastrointestinal: No Symptoms Neurological: No Symptoms Psychological: No Symptoms Endocrine: No Symptoms - Past Medical History Pertinent Past Medical History: Yes Neurological History: Stroke ENT History: Cataracts Cardiac History: Hypertension Respiratory History: COPD, Sleep Apnea Endocrine Medical History: Diabetes Type II Musculoskeletal History: Osteoarthritis GI Medical History: GERD, GI Bleed, Hemorrhoids, Polyps History: Other Psycho-Social History: No Pertinent History Male Reproductive Disorders: Prostate Problems Other Medical History: CVA 7-10 years ago - Past Surgical History Past Surgical History: Yes Neuro Surgical History: No Pertinent History Cardiac: Cardiac Catheterization Respiratory: No Pertinent History Gastrointestinal: Cholecystectomy Genitourinary: No Pertinent History Musculoskeletal: Orthopedic Surgery Male Surgical History: No Pertinent History Other Surgical History: arthroscopy with cartlage removal of right knees,. surgery done on liver- infection trimmed off liver from complications from gallbadder removal. right ear drum/canal/ear bone surgery 03/01/16 - Social History Smoking Status: Former smoker How long have you smoked: 10years Exposure to second hand smoke: No Drug Use: none Patient Lives Alone: No - Nursing Vital Signs Nursing Vital Signs: Initial Vital Signs Temperature 98.2 F 03/05/20 16:11 Pulse Rate 84 03/05/20 16:11 Blood Pressure 158/89 03/05/20 16:11 O2 Sat by Pulse Oximetry 95 03/05/20 16:11 Pain Scale Pain Intensity 4 - Physical Exam General Appearance: no apparent distress, alert Eyes, Ears, Nose, Throat Exam: normal ENT inspection Neck Exam: normal inspection Cardiovascular/Respiratory Exam: normal breath sounds, regular rate/rhythm Gastrointestinal/Abdominal Exam: non-tender, soft Back Exam: normal inspection, normal range of motion Legs Exam: right leg: pain, soft tissue tenderness (Right calf), other (Unable Homans sign), bilateral leg: normal inspection, normal range of motion, no evidence of injury Knees Exam: bilateral knee: non-tender, normal inspection, normal range of motion Ankle Exam: bilateral ankle: non-tender, normal inspection, normal range of motion, no evidence of injury Neuro/Tendon Exam: normal sensation, normal motor functions Mental Status Exam: alert, oriented x 3 Skin Exam: normal color SpO2 Interpretation: normal SpO2: 95 O2 Delivery: Room Air Ordered Tests: Active Orders 24 hr Category Date Time Status VENOUS UNILAT/LIMITED EXTREMIT [US] Stat Exams 03/05/20 16:25 Ordered - Progress Progress: improved, pain not gone completely, re-examined Progress Note: 03/05/20 17:43 ruled out DVT right lower extremity. Good peripheral pulses. No discoloration of right lower extremity. Offered pain medication which he refused. No difficulty movements of knee/ankle are any signs of septic joint. Stable for discharge with outpatient follow-up. Counseled pt/family regarding: diagnosis, need for follow-up, rad results - Departure Departure Disposition: Home Clinical Impression: Leg pain, posterior Qualifiers: Laterality: right Qualified Code(s): M79.604 - Pain in right leg Condition: Stable Critical Care Time: No Referrals: LUPE DUNHAM [Primary Care Provider] - Follow Up with PCP/3 days Additional Instructions: Aloe as needed for pain. Follow-up with primary care physician for reevaluation and if pain persist or develop swelling needs to return our need another ultrasound of lower extremity in 7 days.
[2020-03-05 17:43] VITALS: BP 165/91; PULSE 76
--- NOTE | 2020-03-05 21:02 | XRAY ---
Right leg pain. 2-dimensional sonogram and color Doppler imaging of the major venous vessels of the right leg was performed. Comparison: None No thrombus seen in the examined deep venous vessels of the right leg including greater saphenous vein. Veins demonstrate normal compressibility. Venous waveforms are normal with and without augmentation. Impression: Right leg negative for DVT Comment: Preliminary report was given.
== END 2020-03-05 18:07 | disposition home or self-care (01) ==
LOC: ED 15:50
DX: M79.604 Pain in right leg (principal); J44.9 Chronic obstructive pulmonary disease, unspecified; Z79.899 Other long term (current) drug therapy; G47.30 Sleep apnea, unspecified; K21.9 Gastro-esophageal reflux disease without esophagitis
CPT/HCPCS: 93971; 99283

== ENCOUNTER 2020-06-27 17:12 | Observation (INO) | payer MEDICARE ==
[2020-06-27 17:42] LABS: Absolute Neutrophil Ct (ANC) 3.76 (1.4-6.9); BASOPHIL % 0.5 % (0.0-0.4); Basophil (Absolute #) 0.03 (0-0.4); Eosinophil % 5.6 % (0.00-5.0); Eosinophil (Absolute #) 0.37 (0-0.5); Hematocrit 40.1 % (42-50); Hemoglobin 13.1 gm/dl (12.5-18.0); Lymphocyte (Absolute #) 1.55 (1.0-4.6); Lymphocytes % 23.4 % (24.0-44.0); Mean Corpuscular Hgb Concent. 32.7 g/dl (32-36); Mean Platelet Volume 8.9 fl (7.5-11.0); Monocytes % 13.6 % (0.0-12.0); Neutrophil % 56.9 % (36.0-66.0); Platelet Count 205 K/mm3 (150-450); Red Blood Count 4.36 M/mm3 (4.1-5.6); Red Cell Distribution Width 12.9 % (11.5-14.0); White Blood Count 6.6 K/mm3 (4.0-10.5)
--- NOTE | 2020-06-27 17:46 | ERPHSYRPT ---
- History of Present Illness Time Seen by Provider: 06/27/20 17:20 Source: patient Exam Limitations: no limitations Patient Subjective Stated Complaint: pt here for increase sob and chest discomfort since last saturday, no fever, pt has hx of copd, Triage Nursing Assessment: pt alert, arrived per wc, face mask in place,has congested sounding cough, has swelling to lower legs resp labored with movement, grunting at times Physician History: Patient is a 79-year-old male with history of COPD presents to our ED with compl aints of progressive shortness of breath over the past 3 days. Patient believes that he may have a COPD exacerbation. Shortness of breath is associated with chest pressure. No lida chest pain. No nausea vomiting or diaphoresis. No fever. Patient states that he has been attending [employer] functions without wearing masks. Patient has a dry cough. No other symptomology or "known Covid exposures. Mild to moderate in intensity. Exertion worsens symptoms patient voices no other complaints or concerns at this time. Timing/Duration: day(s) (3 days) Severity: moderate Modifying Factors: Improves With: movement Associated Symptoms: cough, headaches (. No neck pain. No photophobia. No meningeal signs.), No nausea, No vomiting, No abdominal pain, No heartburn, No diaphoresis, No chills, No loss of appetite, No malaise, No rash Allergies/Adverse Reactions: amlodipine besylate [From Evan] Allergy (Intermediate, Verified 06/27/20 17:24) Swelling LEG SWELLING olmesartan medoxomil [From Evan] Allergy (Intermediate, Verified 06/27/20 17:24) Swelling LEG SWELLING clonidine Allergy (Unknown, Verified 06/27/20 17:24) Swelling TONGUE SWELLING Iodinated Contrast Media Adverse Reaction (Unknown, Verified 06/27/20 17:24) will damage kidneys- do not give without hydration Home Medications: Bumetanide 1 mg PO DAILY #0 07/17/12 [History] Tamsulosin HCl 0.4 mg [Flomax 0.4 MG] 0.4 mg PO DAILY #0 07/17/12 [History] Insulin Glargine,Hum.rec.anlog [Lantus] 76 unit SQ HS #0 07/18/12 [History] Insulin Lispro [Humalog] 50 - 60 units SQ PC #0 07/18/12 [History] Spironolactone 25 mg [Aldactone 25 MG] 25 mg PO DAILY 10/15/13 [History] Allopurinol 100 mg [Zyloprim 100 mg] 200 mg PO QAM 03/21/16 [History] Atorvastatin Calcium [Lipitor] 40 mg PO DAILY 03/21/16 [History] Albuterol Sulfate [Albuterol Sulfate Hfa] 1 inh PO UD 03/05/20 [History] Losartan Potassium 50 mg [Cozaar 50 MG] 50 mg PO DAILY 03/05/20 [History] Meclizine HCl 25 mg [Antivert 25 mg] 25 mg PO BID 03/05/20 [History] Umeclidinium Brm/Vilanterol Tr [Anoro Ellipta 62.5-25 Mcg INH] 1 inh PO UD 03/05/20 [History] carvediloL [Carvedilol] 25 mg PO DAILY 03/05/20 [History] Fluticasone/Umeclidin/Vilanter [Trelegy Ellipta 100-62.5-25] 1 ea DAILY 06/27/20 [History] predniSONE [Prednisone] 1 ea DAILY 06/27/20 [History] Hx Tetanus, Diphtheria Vaccination/Date Given: Yes Hx Influenza Vaccination/Date Given: No Hx Pneumococcal Vaccination/Date Given: Yes Immunizations Up to Date: Yes Travel Risk - International Travel Have you traveled outside of the country in past 3 weeks: No - Coronavirus Screening Are you exhibiting any of the following symptoms?: Yes Symptoms: Shortness of Breath Close contact with a COVID-19 positive Pt in past 14-21 Days: No - Review of Systems Constitutional: No Symptoms, No Fever, No Chills Eyes: No Symptoms Ears, Nose, & Throat: No Symptoms Respiratory: No Symptoms, No Cough, No Dyspnea Cardiac: No Symptoms, No Chest Pain, No Edema, No Syncope Abdominal/Gastrointestinal: No Symptoms, No Abdominal Pain, No Nausea, No Vomiting, No Diarrhea Genitourinary Symptoms: No Symptoms, No Dysuria Musculoskeletal: No Symptoms, No Back Pain, No Neck Pain Skin: No Symptoms, No Rash Neurological: No Symptoms, No Dizziness, No Focal Weakness, No Sensory Changes Psychological: No Symptoms Endocrine: No Symptoms Hematologic/Lymphatic: No Symptoms Immunological/Allergic: No Symptoms All Other Systems: Reviewed and Negative - Past Medical History Pertinent Past Medical History: No Neurological History: Stroke ENT History: Cataracts Cardiac History: Hypertension Respiratory History: COPD, Sleep Apnea Endocrine Medical History: Diabetes Type II Musculoskeletal History: Osteoarthritis GI Medical History: GERD, GI Bleed, Hemorrhoids, Polyps History: Other Psycho-Social History: No Pertinent History Male Reproductive Disorders: Prostate Problems Other Medical History: CVA 7-10 years ago - Past Surgical History Past Surgical History: Yes Neuro Surgical History: No Pertinent History Cardiac: Cardiac Catheterization Respiratory: No Pertinent History Gastrointestinal: Cholecystectomy Genitourinary: No Pertinent History Musculoskeletal: Orthopedic Surgery Male Surgical History: No Pertinent History Other Surgical History: arthroscopy with cartlage removal of right knees,. surgery done on liver- infection trimmed off liver from complications from gallbadder removal. right ear drum/canal/ear bone surgery 03/01/16 - Social History Smoking Status: Former smoker How long have you smoked: 10years Exposure to second hand smoke: No Drug Use: none Patient Lives Alone: No - Nursing Vital Signs Nursing Vital Signs: Initial Vital Signs Temperature 98.8 F 06/27/20 17:14 Pulse Rate 115 H 06/27/20 17:14 Respiratory Rate 26 H 06/27/20 17:14 Blood Pressure 178/115 06/27/20 17:14 O2 Sat by Pulse Oximetry 84 L 06/27/20 17:14 Pain Scale Pain Intensity 5 - Physical Exam General Appearance: no apparent distress, alert Eye Exam: PERRL/EOMI, eyes nml inspection Ears, Nose, Throat Exam: normal ENT inspection, TMs normal, pharynx normal, moist mucous membranes Neck Exam: normal inspection, non-tender, supple, full range of motion Respiratory Exam: normal breath sounds, lungs clear, diminished breath sounds (Minutes breath sounds bilaterally. No respiratory distress.), No respiratory distress, No airway intact Cardiovascular Exam: regular rate/rhythm, normal heart sounds, normal peripheral pulses Gastrointestinal/Abdomen Exam: soft, normal bowel sounds, No tenderness, No mass Back Exam: normal inspection, normal range of motion, No CVA tenderness, No vertebral tenderness Extremity Exam: normal inspection, normal range of motion, pelvis stable Neurologic Exam: alert, oriented x 3, cooperative, normal mood/affect, nml cerebellar function, nml station & gait, sensation nml, No motor deficits Skin Exam: normal color, warm, dry, No rash Lymphatic Exam: No adenopathy SpO2 Interpretation: normal SpO2: 93 O2 Delivery: Room Air - Course Nursing assessment & vital signs reviewed: Yes EKG Interpreted by Me: RATE (113), Sinus Tach, NORMAL AXIS, NORMAL INTERVALS - Radiology Exams Chest X-ray Interpretation: Interpreted by me (. No infiltrate. Normal cardiac silhouette. Normal bony thorax) Ordered Tests: Active Orders 24 hr Category Date Time Status Machine Setup Operator STAT Care 06/27/20 17:22 Active EKG-ER Only STAT Care 06/27/20 17:21 Active IV Insertion STAT Care 06/27/20 17:21 Active Pulse Oximetry (ED) STAT Care 06/27/20 17:21 Active CHEST 1 VIEW (PORTABLE) Stat Exams 06/27/20 17:21 Taken BLOOD CULTURE Stat Lab 06/27/20 17:55 Received CBC W DIFF Stat Lab 06/27/20 17:30 Completed CMP Stat Lab 06/27/20 17:30 Completed MAGNESIUM Stat Lab 06/27/20 17:30 Completed NT PRO BNP Stat Lab 06/27/20 17:30 Completed TROPONIN Q3H Lab 06/27/20 17:30 Completed TROPONIN Q3H Lab 06/27/20 20:30 Ordered TROPONIN Q3H Lab 06/27/20 23:30 Ordered TROPONIN Q3H Lab 06/28/20 02:30 Ordered TROPONIN Q3H Lab 06/28/20 05:30 Ordered UA W/RFX UR CULTURE Stat Lab 06/27/20 17:21 Completed Transfer Order Routine Transfer 06/27/20 Ordered Medication Summary Generic Name Dose Route Start Last Admin Trade Name Freq PRN Reason Stop Dose Admin Remdesivir 200 mg/ Sodium 250 mls @ 125 mls/hr 06/27/20 19:39 Chloride IV 06/27/20 21:38 ONCE ONE Discontinued Medications Generic Name Dose Route Start Last Admin Trade Name Freq PRN Reason Stop Dose Admin Dexamethasone Sodium Phosphate 6 mg 06/27/20 19:33 06/27/20 19:39 Decadron 10mg Inj. IV 06/27/20 19:34 6 mg STAT ONE Administration Dexamethasone Sodium Phosphate Confirm 06/27/20 19:36 Decadron 10mg Inj. Administered 06/27/20 19:37 Dose 10 mg .ROUTE .STK-MED ONE Enoxaparin Sodium 80 mg 06/27/20 19:38 Enoxaparin Sodium SQ 06/27/20 19:39 STAT ONE Lab/Rad Data: Laboratory Result Diagrams 06/27/20 17:30 06/27/20 17:30 Laboratory Results 06/27/20 06/27/20 06/27/20 Range/Units 18:15 17:30 17:30 WBC (4.0-10.5) K/mm3 RBC (4.1-5.6) M/mm3 Hgb (12.5-18.0) gm/dl Hct (42-50) % MCV (78-100) fl MCH (26-32) pg MCHC (32-36) g/dl RDW (11.5-14.0) % Plt Count (150-450) K/mm3 MPV (7.5-11.0) fl Gran % (36.0-66.0) % Eos # (Auto) (0-0.5) Absolute Lymphs (auto) (1.0-4.6) Absolute Monos (auto) (0.0-1.3) Lymphocytes % (24.0-44.0) % Monocytes % (0.0-12.0) % Eosinophils % (0.00-5.0) % Basophils % (0.0-0.4) % Absolute Granulocytes (1.4-6.9) Basophils # (0-0.4) Sodium 135 L (137-145) mmol/L Potassium 5.1 (3.5-5.1) mmol/L Chloride 105 (98-107) mmol/L Carbon Dioxide 20 L (22-30) mmol/L Anion Gap 14.8 (5-15) MEQ/L BUN 39 H (9-20) mg/dL Creatinine 1.96 H (0.66-1.25) mg/dL Estimated GFR 35.3 ML/MIN Glucose 356 H (74-106) mg/dL Calcium 9.5 (8.4-10.2) mg/dL Magnesium 1.9 (1.6-2.3) mg/dL Total Bilirubin 0.50 (0.2-1.3) mg/dL AST 24 (17-59) U/L ALT 25 (0-50) U/L Alkaline Phosphatase 70 (38-126) U/L Troponin I < 0.012 (0.000-0.034) ng/mL NT-Pro-B Natriuret Pep 35.4 (0-1800) pg/mL Serum Total Protein 7.4 (6.3-8.2) g/dL Albumin 4.1 (3.5-5.0) g/dL Urine Color (YELLOW) Urine Appearance (CLEAR) Urine pH (5-6) Ur Specific [place] (1.005-1.025) Urine Protein (Negative) Urine Ketones (NEGATIVE) Urine Blood (0-5) [place]/ul Urine Nitrite (NEGATIVE) Urine Bilirubin (NEGATIVE) Urine Urobilinogen (0-1) mg/dL Ur Leukocyte Esterase (NEGATIVE) Urine WBC (Auto) (0-5) /HPF Urine RBC (Auto) (0-2) /HPF U Epithel Cells (Auto) (FEW) /HPF Urine Bacteria (Auto) (NEGATIVE) /HPF Urine Mucus (Auto) (NEGATIVE) /HPF Urine Culture Reflexed (NO) Urine Glucose (NEGATIVE) mg/dL SARS-CoV-2 (PCR) POSITIVE A (NEGATIVE) 06/27/20 06/27/20 Range/Units 17:30 17:21 WBC 6.6 (4.0-10.5) K/mm3 RBC 4.36 (4.1-5.6) M/mm3 Hgb 13.1 (12.5-18.0) gm/dl Hct 40.1 L (42-50) % MCV 92.0 (78-100) fl MCH 30.0 (26-32) pg MCHC 32.7 (32-36) g/dl RDW 12.9 (11.5-14.0) % Plt Count 205 (150-450) K/mm3 MPV 8.9 (7.5-11.0) fl Gran % 56.9 (36.0-66.0) % Eos # (Auto) 0.37 (0-0.5) Absolute Lymphs (auto) 1.55 (1.0-4.6) Absolute Monos (auto) 0.90 (0.0-1.3) Lymphocytes % 23.4 L (24.0-44.0) % Monocytes % 13.6 H (0.0-12.0) % Eosinophils % 5.6 H (0.00-5.0) % Basophils % 0.5 (0.0-0.4) % Absolute Granulocytes 3.76 (1.4-6.9) Basophils # 0.03 (0-0.4) Sodium (137-145) mmol/L Potassium (3.5-5.1) mmol/L Chloride (98-107) mmol/L Carbon Dioxide (22-30) mmol/L Anion Gap (5-15) MEQ/L BUN (9-20) mg/dL Creatinine (0.66-1.25) mg/dL Estimated GFR ML/MIN Glucose (74-106) mg/dL Calcium (8.4-10.2) mg/dL Magnesium (1.6-2.3) mg/dL Total Bilirubin (0.2-1.3) mg/dL AST (17-59) U/L ALT (0-50) U/L Alkaline Phosphatase (38-126) U/L Troponin I (0.000-0.034) ng/mL NT-Pro-B Natriuret Pep (0-1800) pg/mL Serum Total Protein (6.3-8.2) g/dL Albumin (3.5-5.0) g/dL Urine Color YELLOW (YELLOW) Urine Appearance CLEAR (CLEAR) Urine pH 5.0 (5-6) Ur Specific [place] 1.012 (1.005-1.025) Urine Protein 100 (Negative) Urine Ketones NEGATIVE (NEGATIVE) Urine Blood NEGATIVE (0-5) [place]/ul Urine Nitrite NEGATIVE (NEGATIVE) Urine Bilirubin NEGATIVE (NEGATIVE) Urine Urobilinogen NEGATIVE (0-1) mg/dL Ur Leukocyte Esterase NEGATIVE (NEGATIVE) Urine WBC (Auto) NONE (0-5) /HPF Urine RBC (Auto) NONE (0-2) /HPF U Epithel Cells (Auto) NONE (FEW) /HPF Urine Bacteria (Auto) NONE (NEGATIVE) /HPF Urine Mucus (Auto) SLIGHT (NEGATIVE) /HPF Urine Culture Reflexed NO (NO) Urine Glucose >=500 (NEGATIVE) mg/dL SARS-CoV-2 (PCR) (NEGATIVE) - Progress Progress: improved Progress Note: 06/27/20 19:58 Patient reassessed. He feels well at rest. No acute chest pain or shortness of breath. Covid positive. Troponin negative. Case discussed with Dr. Hopson who accepts admission to the Covid unit. Dr. Wade requests a 1 mg/kg dose of Lovenox. Patient received Decadron. Dr. Wade also requests loading dose of remdesivir. Discussed with patient. He agrees admission to [facility] for further evaluation and treatment. 06/27/20 20:00 Will see patient in: hospital (observation) Counseled pt/family regarding: lab results, diagnosis, rad results - Departure Departure Disposition: Observation Clinical Impression: Dehydration, COVID-19, Hyperglycemia, Chronic renal disease Condition: Stable Critical Care Time: No Referrals: LUPE DUNHAM [Primary Care Provider] -
[2020-06-27 18:13] LABS: ALBUMIN 4.1 g/dL (3.5-5.0); ANION GAP 14.8 MEQ/L (5-15); BILIRUBIN,TOTAL 0.5 mg/dL (0.2-1.3); Calcium 9.5 mg/dL (8.4-10.2); Creatinine 1 1.96 mg/dL (0.66-1.25); EST GLOMERULAR FILTRATION RATE 35.3 ML/MIN; MAGNESIUM 1.9 mg/dL (1.6-2.3); NT PRO BNP 35.4 pg/mL (0-1800); Potassium 5.1 mmol/L (3.5-5.1); Total Protein 7.4 g/dL (6.3-8.2)
[2020-06-27 18:21] LABS: Appearance CLEAR (CLEAR); Bilirubin NEGATIVE (NEGATIVE); Blood NEGATIVE Ery/ul (0-5); Glucose >=500 mg/dL (NEGATIVE); Ketones NEGATIVE (NEGATIVE); Leukocyte Esterase NEGATIVE (NEGATIVE); Mucus SLIGHT /HPF (NEGATIVE); Nitrite NEGATIVE (NEGATIVE); Protein,Urine Dip 100 (Negative); Specific Gravity 1.012 (1.005-1.025); Urobilinogen NEGATIVE mg/dL (0-1)
[2020-06-27] MEDS ORDERED: DECADRON 10MG INJ. IV ONE (19:33)
[2020-06-27] MEDS ORDERED: DECADRON 10MG INJ. ONE (19:36)
[2020-06-27] MEDS ORDERED: ENOXAPARIN SODIUM SQ ONE ×2 (19:38→20:21)
[2020-06-27] MEDS ORDERED: REMDESIVIR 200 MG in Sodium Chloride 0.9% 250 ML 250 ML IV ONE (19:39)
[2020-06-27] MEDS ORDERED: Sodium Chloride 0.9% 250 ML 250 ML IV ONE (20:28)
[2020-06-27] MEDS ORDERED: ENOXAPARIN SODIUM SQ SCH (22:00)
[2020-06-27] MEDS ORDERED: Decadron 4 MG INJ IV SCH (22:00)
[2020-06-27] MEDS ORDERED: TYLENOL EXTRA STRENGTH 500 MG PO PRN (22:01)
[2020-06-27] MEDS ORDERED: Ativan 1 MG PO PRN (22:03)
[2020-06-27] MEDS ORDERED: REMDESIVIR 100 MG in Sodium Chloride 0.9% 100 ML IVPB 100 ML IV SCH (22:15)
[2020-06-28] MEDS ORDERED: PATIENT OWN MEDICATION IH PRN (02:24)
[2020-06-28 06:01] LABS: ANION GAP 15.2 MEQ/L (5-15); Calcium 9.8 mg/dL (8.4-10.2); Creatinine 1 1.82 mg/dL (0.66-1.25); EST GLOMERULAR FILTRATION RATE 38.5 ML/MIN; Potassium 5.5 mmol/L (3.5-5.1)
[2020-06-28 06:05] LABS: Risk Ratio 4.5
[2020-06-28] MEDS: PATIENT OWN MEDICATION IH SCH (06:30)
[2020-06-28 06:31] LABS: Absolute Neutrophil Ct (ANC) 3.52 (1.4-6.9); BASOPHIL % 0.2 % (0.0-0.4); Basophil (Absolute #) 0.01 (0-0.4); Eosinophil (Absolute #) 0 (0-0.5); Hematocrit 39.5 % (42-50); Hemoglobin 12.9 gm/dl (12.5-18.0); Lymphocyte (Absolute #) 0.91 (1.0-4.6); Lymphocytes % 19.4 % (24.0-44.0); Mean Cell Volume 91.4 fl (78-100); Mean Corpuscular Hemoglobin 29.9 pg (26-32); Mean Corpuscular Hgb Concent. 32.7 g/dl (32-36); Mean Platelet Volume 9.2 fl (7.5-11.0); Monocyte (Absolute #) 0.26 (0.0-1.3); Monocytes % 5.5 % (0.0-12.0); Neutrophil % 74.9 % (36.0-66.0); Platelet Count 212 K/mm3 (150-450); Red Blood Count 4.32 M/mm3 (4.1-5.6); Red Cell Distribution Width 12.6 % (11.5-14.0); White Blood Count 4.7 K/mm3 (4.0-10.5)
[2020-06-28] MEDS ORDERED: INSULIN LISPRO 50 UNIT SQ SCH (08:30)
[2020-06-28] MEDS: HUMALOG SQ SCH ×3 (08:45→17:40)
--- NOTE | 2020-06-28 08:48 | XRAY ---
Indication: Short of breath and nonproductive cough. Positive Covid 19. Multiple contiguous axial images obtained through the chest without contrast. Comparison: December 22, 2019. Lungs demonstrates new minimal peripheral right lower lobe patchy groundglass airspace disease without effusion. Elsewhere there is minimal bilateral dependent atelectasis with stable bibasilar fibrosis/scarring and stable tiny left upper lobe bleb. Heart is not enlarged. Aorta again demonstrates minimal scattered calcifications without aneurysm. Stable tiny left hilar calcified nodes. No pathologic mediastinal lymphadenopathy. Bony thorax intact again with moderate degenerative changes throughout the spine. Limited upper abdomen again demonstrates fatty liver. Impression: 1. New minimal peripheral right lower lobe patchy groundglass airspace disease. 2. Stable incidental bibasilar fibrosis/scarring, left upper lobe bleb, fatty liver, chronic bony findings, and old granulomatous disease.
--- NOTE | 2020-06-28 08:50 | XRAY ---
Indication: Short of breath. Positive Covid 19. Comparison: November 24, 2019. Portable chest demonstrates new CT proven right base airspace disease. Remaining heart and lungs are unremarkable. Bony thorax intact again with multilevel degenerative spondylosis.
[2020-06-28] MEDS ORDERED: NON-FORMULARY ITEM (Carvedilol [Carvedilol] 25 MG) PO SCH (10:00)
[2020-06-28] MEDS ORDERED: BUMETANIDE 1 MG PO SCH (10:00)
[2020-06-28] MEDS ORDERED: DELTASONE 5 MG PO SCH (10:00)
[2020-06-28] MEDS: Aldactone 25 MG PO SCH (10:27)
[2020-06-28] MEDS: ANTIVERT 25 MG PO SCH ×2 (10:27→19:50)
[2020-06-28] MEDS: BUMEX 1 MG PO SCH (10:28)
[2020-06-28] MEDS: COREG 12.5 MG PO SCH (10:28)
[2020-06-28] MEDS: Decadron 4 MG INJ IV SCH ×2 (10:29→19:49)
[2020-06-28] MEDS: Cozaar 50 MG PO SCH (10:29)
[2020-06-28] MEDS: Flomax 0.4 MG PO SCH (10:30)
[2020-06-28] MEDS: LIPITOR 40MG PO SCH (10:30)
[2020-06-28] MEDS: ZYLOPRIM 100 MG PO SCH (12:46)
[2020-06-28] MEDS: HUMULIN R SQ PRN ×2 (12:47→17:41)
[2020-06-28] MEDS: ENOXAPARIN SODIUM SQ SCH (19:49)
[2020-06-28] MEDS: REMDESIVIR 100 MG in Sodium Chloride 0.9% 100 ML IVPB 100 ML IV SCH (19:54)
[2020-06-28] MEDS ORDERED: Lantus Insulin ONE (19:55)
[2020-06-28] MEDS ORDERED: ENOXAPARIN SODIUM SQ SCH (22:00)
[2020-06-28] MEDS: Lantus Insulin SQ SCH (22:07)
[2020-06-29 06:23] LABS: ANION GAP 14.8 MEQ/L (5-15); Calcium 9.5 mg/dL (8.4-10.2); Creatinine 1 1.88 mg/dL (0.66-1.25); EST GLOMERULAR FILTRATION RATE 37.1 ML/MIN; Potassium 5.4 mmol/L (3.5-5.1)
[2020-06-29] MEDS: PATIENT OWN MEDICATION IH SCH ×2 (07:00→07:51)
[2020-06-29] MEDS: HUMALOG SQ SCH ×3 (07:50→17:26)
[2020-06-29] MEDS: HUMULIN R SQ PRN ×2 (07:51→17:27)
[2020-06-29] MEDS: Aldactone 25 MG PO SCH (10:11)
[2020-06-29] MEDS: ANTIVERT 25 MG PO SCH ×2 (10:11→21:32)
[2020-06-29] MEDS: BUMEX 1 MG PO SCH (10:11)
[2020-06-29] MEDS: Cozaar 50 MG PO SCH (10:12)
[2020-06-29] MEDS: LIPITOR 40MG PO SCH (10:12)
[2020-06-29] MEDS: Decadron 4 MG INJ IV SCH ×2 (10:12→21:32)
[2020-06-29] MEDS: COREG 12.5 MG PO SCH (10:12)
[2020-06-29] MEDS: Flomax 0.4 MG PO SCH (10:12)
[2020-06-29] MEDS: ZYLOPRIM 100 MG PO SCH (10:15)
--- NOTE | 2020-06-29 13:37 | HP ---
CHIEF COMPLAINT: Shortness of breath, productive cough, aching all over for three days. HISTORY OF PRESENT ILLNESS: The patient has felt increasingly short of breath over the last three days. Noticed he was short of breath walking to his barn much more worse than he usually is. He is a nonsmoker. He states he thinks his had COVID and she was bad but has improved. 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 He was never treated for it but Dr. Stevens told him that once. Normally he is pretty active. He is just exhausted, feels bad. Denies any chest pain. He has a 50% blockage, I think, on a cath years ago. No exertional chest pain since then. He has had diabetes mellitus for quite a few years. He does not know how many. MEDICATIONS: Allopurinol 100 b.i.d., atorvastatin 40 q.d., Bumex 1 mg q.d., carvedilol 25 q.d., losartan 50 q.d., meclizine 25 mg 1 b.i.d., spironolactone 25 q.d., tamsulosin 0.4 q.d., Humulin insulin after each meal determined by his blood sugar at the time. Lantus 90 units before bedtime. Nutrilite nutritional supplement 1 a day, saw [place] for his prostate. The patient has been on some prednisone and Trelegy 100-62.5-25 inhaler. ALLERGIES: AMLODIPINE. OLMESARTAN. CLONIDINE. REVIEW OF SYSTEMS: HEENT: No problems hearing or seeing. CHEST: The patient is short of breath at rest now which is very unusual for him, he states. 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 He has never had any bad arthritis like rheumatoid arthritis. He has had some back pain but nothing chronically. CVS: The patient had a positive cath with 50% blockage. He does not know if he has been in heart failure although it sounds like he is on some medicines that might have been used for heart failure. Diabetes for probably 20 years. No recent hypoglycemia. ABDOMEN: No nausea or vomiting. He is eating okay. EXTREMITIES: Some pain in his knees but able to ambulate well. FAMILY HISTORY: He lives with his , has numerous children, grandchildren and great-grandchildren in the area. 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 [place] which states would hurt his lungs. PHYSICAL EXAMINATION: The patient is a very large, healthy looking 79 year old man. HEENT: Pupils equal and reactive to light. NECK: Supple without adenopathy. No JVD or murmurs. CHEST: Few crackles bilateral. Normal percussion. ABDOMEN: He has a large panniculus. No masses or organomegaly. EXTREMITIES: Some tenderness over the knees otherwise normal. LAB DATA AND TESTS: D-dimer was markedly elevated at like 700. Chest x-ray showed some early COVID pneumonia. Creatinine 1.88. Blood sugar 320. Sodium 133. D-dimer on 06/29/2020 was down to 477. A1C on 06/28/2020 was 8.78. IMPRESSION: The patient has COVID pneumonia, diabetes mellitus on insulin, coronary artery disease stable, gout and arthritis. Apparently some lung disease since he has an inhaler at home. I am not for sure how long he has been on the prednisone. PLAN: The patient was treated with IV Decadron, Remdesivir and anticoagulated. Oxygen titrated to keep his pAO2 over 90. PROGNOSIS: Fair.
[2020-06-29] MEDS: REMDESIVIR 100 MG in Sodium Chloride 0.9% 100 ML IVPB 100 ML IV SCH (21:32)
[2020-06-29] MEDS: ENOXAPARIN SODIUM SQ SCH (21:33)
[2020-06-29] MEDS: Lantus Insulin SQ SCH (21:33)
[2020-06-30] MEDS: PATIENT OWN MEDICATION IH SCH (07:25)
[2020-06-30] MEDS: HUMULIN R SQ PRN (08:01)
[2020-06-30] MEDS: HUMALOG SQ SCH (08:01)
[2020-06-30] MEDS: ANTIVERT 25 MG PO SCH (09:23)
[2020-06-30] MEDS: Cozaar 50 MG PO SCH (09:24)
[2020-06-30] MEDS: Flomax 0.4 MG PO SCH (09:24)
[2020-06-30] MEDS: COREG 12.5 MG PO SCH (09:24)
[2020-06-30] MEDS: BUMEX 1 MG PO SCH (09:26)
[2020-06-30] MEDS: Aldactone 25 MG PO SCH (09:27)
[2020-06-30] MEDS: Decadron 4 MG INJ IV SCH (09:27)
[2020-06-30] MEDS: LIPITOR 40MG PO SCH (09:28)
[2020-06-30] MEDS: ZYLOPRIM 100 MG PO SCH (09:45)
[2020-06-30 12:33] VITALS: BP 129/73; PULSE 78; O2SAT 93
== END 2020-06-30 12:15 | disposition home or self-care (01) ==
LOC: ED 17:12 → MED SURG 20:46
PROVIDERS: ADMIT Family Medicine; ATTEND Family Medicine
DX: U07.1 COVID-19 (principal); J12.89 Other viral pneumonia; E11.9 Type 2 diabetes mellitus without complications; Z79.899 Other long term (current) drug therapy; Z79.4 Long term (current) use of insulin; I25.10 Atherosclerotic heart disease of native coronary artery without angina pectoris; M10.9 Gout, unspecified; M19.90 Unspecified osteoarthritis, unspecified site; R51.9 Headache, unspecified; J44.9 Chronic obstructive pulmonary disease, unspecified; G47.30 Sleep apnea, unspecified; E86.0 Dehydration
CPT/HCPCS: 36415; 71045; 71250; 80048; 80053; 80061; 81001; 82947; 83036; 83721; 83735; 83880; 84484; 85025; 85379; 87040; 93005; 93041; 93268; 94640; 94760; 94762; 96372; 96374; 99285; G0378; U0003; J1100; J1650; J1815; J1817; A9270-GY

== ENCOUNTER 2020-09-21 09:21 | Day surgery (SDC) | payer MEDICARE ==
[2020-09-21] MEDS ORDERED: LIDOCAINE HCL 2% 100 MG/5 ML IJ ONE (09:22)
[2020-09-21] MEDS ORDERED: DIPRIVAN 200 MG/20 ML IV ONE (10:55)
[2020-09-21] MEDS ORDERED: Ketamine HCl 50 MG/ML ONE (10:55)
--- NOTE | 2020-09-21 12:19 | XRAY ---
Indication: Bilateral L4-S1 MBB. Intraoperative fluoroscopy provided for 29 seconds. Single digital spot image submitted for interpretation demonstrates posterior needle tips projecting over the expected left and right L4-S1 nerve roots. Correlate with intraoperative findings/report.
--- NOTE | 2020-09-21 12:21 | XRAY ---
29 seconds of fluoroscopy was used in surgery for a bilateral L4-L5 and L5-S1 MBB.
[2020-09-21] MEDS ORDERED: Lactated Ringers 1,000 ML IV ONE (15:13)
== END 2020-09-21 11:51 | disposition home or self-care (01) ==
LOC: SDC-PAIN 09:21
PROVIDERS: ATTEND Psychiatry & Neurology Pain Medicine
DX: M47.816 Spondylosis without myelopathy or radiculopathy, lumbar region (principal); E11.9 Type 2 diabetes mellitus without complications; G47.30 Sleep apnea, unspecified; K21.9 Gastro-esophageal reflux disease without esophagitis; J44.9 Chronic obstructive pulmonary disease, unspecified; F41.8 Other specified anxiety disorders; Z79.899 Other long term (current) drug therapy; Z86.73 Personal history of transient ischemic attack (TIA), and cerebral infarction without residual deficits
CPT/HCPCS: 64493; 64494; 72020; 77002; 82947; J2704

== ENCOUNTER 2021-02-02 19:27 | Emergency (ER) | payer MEDICARE ==
[2021-02-02] MEDS ORDERED: Sodium Chloride 0.9% 500 ML 500 ML IV ONE (19:54)
[2021-02-02] MEDS: Sodium Chloride 0.9% 500 ML 500 ML IV ONE (19:57)
[2021-02-02 20:03] LABS: Appearance CLEAR (CLEAR); Bilirubin NEGATIVE (NEGATIVE); Blood NEGATIVE Ery/ul (0-5); Glucose NEGATIVE (NEGATIVE); Ketones NEGATIVE (NEGATIVE); Leukocyte Esterase NEGATIVE (NEGATIVE); Nitrite NEGATIVE (NEGATIVE); Protein,Urine Dip 30 (Negative); Specific Gravity 1.006 (1.005-1.025); Urobilinogen NEGATIVE mg/dL (0-1)
[2021-02-02 20:04] LABS: Absolute Neutrophil Ct (ANC) 5.89 (1.4-6.9); BASOPHIL % 0.7 % (0.0-0.4); Basophil (Absolute #) 0.08 (0-0.4); Eosinophil % 9.4 % (0.00-5.0); Eosinophil (Absolute #) 1.04 (0-0.5); Hematocrit 39.6 % (42-50); Lymphocyte (Absolute #) 2.88 (1.0-4.6); Lymphocytes % 26.1 % (24.0-44.0); Mean Corpuscular Hemoglobin 29.9 pg (26-32); Mean Corpuscular Hgb Concent. 32.8 g/dl (32-36); Mean Platelet Volume 8.9 fl (7.5-11.0); Monocyte (Absolute #) 1.13 (0.0-1.3); Monocytes % 10.3 % (0.0-12.0); Neutrophil % 53.5 % (36.0-66.0); Platelet Count 297 K/mm3 (150-450); Red Blood Count 4.35 M/mm3 (4.1-5.6); Red Cell Distribution Width 13.4 % (11.5-14.0)
[2021-02-02 20:16] LABS: ALBUMIN 4.3 g/dL (3.5-5.0); BILIRUBIN,TOTAL 0.3 mg/dL (0.2-1.3); Calcium 10.2 mg/dL (8.4-10.2); Creatinine 1 1.87 mg/dL (0.66-1.25); EST GLOMERULAR FILTRATION RATE 37.2 ML/MIN; Potassium 4.3 mmol/L (3.5-5.1); Total Protein 7.3 g/dL (6.3-8.2)
--- NOTE | 2021-02-02 20:17 | ERPHSYRPT ---
- History of Present Illness Time Seen by Provider: 02/02/21 19:30 Historian: patient Exam Limitations: no limitations Patient Subjective Stated Complaint: pt states, "I've had abd pain since 299 morning and it has not improved. I saw Analia Mcguire NP yesterday but was wanting me to get a CT scan and didn't get quick insurance approval. Pain got worse so I came into the ER". Triage Nursing Assessment: pt c/o Lt lower abd pain, bs active x4 quad, tender on palpation, no radiation of pain. Pt denies any c/p. LBM yesterday x2. Pt denies any vomiting or indigestion. Pt has some occasional nausea. Physician History: 80 years old morbidly obese male with history of diabetes mellitus, hypertension, previous hernia repairs presented in the ER with 3 days history of left lower quadrant sharp moderate to severe intensity pain without any radiation. Pain is aggravated with movements palpation and no significant relieving factors. Denies associated diarrhea or constipation. Denies any urinary symptoms. No fever or chills reported but does have some nausea but no vomiting. Timing/Duration: day(s) (3), constant, gradual onset, worse Activities at Onset: rest Quality: sharpness Abdominal Pain Onset Location: LLQ Pain Radiation: no radiation Severity of Pain-Max: moderate Severity of Pain-Current: moderate Modifying Factors: Improves With: nothing Associated Symptoms: nausea, No vomiting Previous symptoms: no prior history Allergies/Adverse Reactions: amlodipine besylate [From Evan] Allergy (Intermediate, Verified 02/02/21 19:51) Swelling LEG SWELLING olmesartan medoxomil [From Evan] Allergy (Intermediate, Verified 02/02/21 19:51) Swelling LEG SWELLING clonidine Allergy (Unknown, Verified 02/02/21 19:51) Swelling TONGUE SWELLING Iodinated Contrast Media Adverse Reaction (Unknown, Verified 02/02/21 19:51) will damage kidneys- do not give without hydration Home Medications: Bumetanide 1 mg PO DAILY #0 07/17/12 [History] Tamsulosin HCl 0.4 mg [Flomax 0.4 MG] 0.4 mg PO DAILY #0 07/17/12 [History] Insulin Glargine,Hum.rec.anlog [Lantus] 90 unit SQ HS #0 07/18/12 [History] Insulin Lispro [Humalog] 60 - 70 units SQ TIDWM #0 07/18/12 [History] Spironolactone 25 mg [Aldactone 25 MG] 25 mg PO DAILY 10/15/13 [History] Allopurinol 100 mg [Zyloprim 100 mg] 200 mg PO QAM 03/21/16 [History] Atorvastatin Calcium [Lipitor] 40 mg PO DAILY 03/21/16 [History] Albuterol Sulfate [Albuterol Sulfate Hfa] 1 inh PO UD 03/05/20 [History] Losartan Potassium 50 mg [Cozaar 50 MG] 50 mg PO DAILY 03/05/20 [History] carvediloL [Carvedilol] 25 mg PO DAILY 03/05/20 [History] Fluticasone/Umeclidin/Vilanter [Trelegy Ellipta 100-62.5-25] 1 ea IH DAILY 06/27/20 [History] Hx Tetanus, Diphtheria Vaccination/Date Given: Yes Hx Influenza Vaccination/Date Given: No Hx Pneumococcal Vaccination/Date Given: Yes Immunizations Up to Date: Yes Travel Risk - International Travel Have you traveled outside of the country in past 3 weeks: No - Coronavirus Screening Are you exhibiting any of the following symptoms?: No Close contact with a COVID-19 positive Pt in past 14-21 Days: No - Vaccine Status Have you recieved a Covid-19 vaccination: Yes 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 - Vaccination Dates Date of 2cond Vaccination (if applicable): 11/14/20 - Review of Systems Constitutional: No Symptoms Eyes: No Symptoms Ears, Nose, & Throat: No Symptoms Respiratory: No Symptoms Cardiac: No Symptoms Abdominal/Gastrointestinal: Abdominal Pain, Nausea Genitourinary Symptoms: No Symptoms Musculoskeletal: No Symptoms Skin: No Symptoms Neurological: No Symptoms Psychological: No Symptoms Endocrine: No Symptoms Hematologic/Lymphatic: No Symptoms Immunological/Allergic: No Symptoms - Past Medical History Pertinent Past Medical History: Yes Neurological History: Stroke ENT History: Cataracts Cardiac History: Angina, Hypertension Respiratory History: COPD, Sleep Apnea Endocrine Medical History: Diabetes Type II Musculoskeletal History: Osteoarthritis GI Medical History: GERD, Gallbladder Disease, GI Bleed, Hemorrhoids, Polyps History: Other Psycho-Social History: No Pertinent History Male Reproductive Disorders: Prostate Problems Other Medical History: CVA 7-10 years ago - Past Surgical History Past Surgical History: Yes Neuro Surgical History: No Pertinent History Cardiac: Cardiac Catheterization Respiratory: No Pertinent History Gastrointestinal: Cholecystectomy, Hernia Repair Genitourinary: No Pertinent History Musculoskeletal: Orthopedic Surgery Male Surgical History: Vasectomy Other Surgical History: arthroscopy with cartilage removal of right knees,. surgery done on liver- infection trimmed off liver from complications from gallbadder removal. right ear drum/canal/ear bone surgery 03/01/16. triple hernia repair 1977 - Social History Smoking Status: Former smoker How long have you smoked: 10years Exposure to second hand smoke: No Drug Use: none Patient Lives Alone: No - Nursing Vital Signs Nursing Vital Signs: Initial Vital Signs Temperature 97.8 F 02/02/21 19:33 Pulse Rate 112 H 02/02/21 19:33 Respiratory Rate 20 02/02/21 19:33 Blood Pressure 162/84 02/02/21 19:33 O2 Sat by Pulse Oximetry 95 02/02/21 19:33 Pain Scale Pain Intensity 6 - Physical Exam General Appearance: no apparent distress, alert Eye Exam: PERRL/EOMI, eyes nml inspection Ears, Nose, Throat Exam: normal ENT inspection, pharynx normal Neck Exam: normal inspection, supple, full range of motion Respiratory Exam: normal breath sounds, lungs clear Cardiovascular Exam: normal heart sounds, tachycardia Gastrointestinal/Abdomen Exam: normal bowel sounds, tenderness (Left lower quadrant with guarding but no rebound tenderness) Back Exam: normal inspection Extremity Exam: normal inspection, normal range of motion Neurologic Exam: alert, oriented x 3, cooperative Skin Exam: normal color SpO2 Interpretation: normal SpO2: 95 O2 Delivery: Room Air Ordered Tests: Active Orders 24 hr Category Date Time Status ABDOMEN AND PELVIS W/0 CONTRAS [CT] Stat Exams 02/02/21 19:44 Taken AMYLASE Stat Lab 02/02/21 19:44 Completed CBC W DIFF Stat Lab 02/02/21 19:44 Completed CMP Stat Lab 02/02/21 19:44 Completed ESR [Erythrocyte Sedimentation Rate] Stat Lab 02/02/21 19:45 Completed LIPASE Stat Lab 02/02/21 19:44 Completed Lactic Acid Stat Lab 02/02/21 19:51 Completed UA W/RFX UR CULTURE Stat Lab 02/02/21 19:53 Completed Medication Summary Discontinued Medications Generic Name Dose Route Start Last Admin Trade Name Carlita PRN Reason Stop Dose Admin Sodium Chloride 500 mls @ 500 mls/hr 02/02/21 19:45 02/02/21 21:09 Sodium Chloride 0.9% 500 Ml IV 02/02/21 20:44 Infused .Q1H ONE Infusion Sodium Chloride Confirm 02/02/21 19:54 Sodium Chloride 0.9% 500 Ml Administered 02/02/21 19:55 Dose 500 mls @ ud IV .STK-MED ONE Lab/Rad Data: Laboratory Result Diagrams 02/02/21 19:44 02/02/21 19:44 Laboratory Results 02/02/21 02/02/21 02/02/21 Range/Units 19:53 19:51 19:45 WBC (4.0-10.5) K/mm3 RBC (4.1-5.6) M/mm3 Hgb (12.5-18.0) gm/dl Hct (42-50) % MCV (78-100) fl MCH (26-32) pg MCHC (32-36) g/dl RDW (11.5-14.0) % Plt Count (150-450) K/mm3 MPV (7.5-11.0) fl Gran % (36.0-66.0) % Eos # (Auto) (0-0.5) Absolute Lymphs (auto) (1.0-4.6) Absolute Monos (auto) (0.0-1.3) Lymphocytes % (24.0-44.0) % Monocytes % (0.0-12.0) % Eosinophils % (0.00-5.0) % Basophils % (0.0-0.4) % Absolute Granulocytes (1.4-6.9) Basophils # (0-0.4) ESR 44 H (0-15) mm/hr Sodium (137-145) mmol/L Potassium (3.5-5.1) mmol/L Chloride (98-107) mmol/L Carbon Dioxide (22-30) mmol/L Anion Gap (5-15) MEQ/L BUN (9-20) mg/dL Creatinine (0.66-1.25) mg/dL Estimated GFR ML/MIN Glucose (74-106) mg/dL Lactic Acid 0.7 (0.4-2.0) Calcium (8.4-10.2) mg/dL Total Bilirubin (0.2-1.3) mg/dL AST (17-59) U/L ALT (0-50) U/L Alkaline Phosphatase (38-126) U/L Serum Total Protein (6.3-8.2) g/dL Albumin (3.5-5.0) g/dL Amylase (30-110) U/L Lipase (23-300) U/L Urine Color STRAW (YELLOW) Urine Appearance CLEAR (CLEAR) Urine pH 5.0 (5-6) Ur Specific [place] 1.006 (1.005-1.025) Urine Protein 30 (Negative) Urine Ketones NEGATIVE (NEGATIVE) Urine Blood NEGATIVE (0-5) [place]/ul Urine Nitrite NEGATIVE (NEGATIVE) Urine Bilirubin NEGATIVE (NEGATIVE) Urine Urobilinogen NEGATIVE (0-1) mg/dL Ur Leukocyte Esterase NEGATIVE (NEGATIVE) Urine WBC (Auto) NONE (0-5) /HPF Urine RBC (Auto) NONE (0-2) /HPF U Epithel Cells (Auto) NONE (FEW) /HPF Urine Bacteria (Auto) NONE (NEGATIVE) /HPF Urine Culture Reflexed NO (NO) Urine Glucose NEGATIVE (NEGATIVE) mg/dL 02/02/21 02/02/21 Range/Units 19:44 19:44 WBC 11.0 H (4.0-10.5) K/mm3 RBC 4.35 (4.1-5.6) M/mm3 Hgb 13.0 (12.5-18.0) gm/dl Hct 39.6 L (42-50) % MCV 91.0 (78-100) fl MCH 29.9 (26-32) pg MCHC 32.8 (32-36) g/dl RDW 13.4 (11.5-14.0) % Plt Count 297 (150-450) K/mm3 MPV 8.9 (7.5-11.0) fl Gran % 53.5 (36.0-66.0) % Eos # (Auto) 1.04 H (0-0.5) Absolute Lymphs (auto) 2.88 (1.0-4.6) Absolute Monos (auto) 1.13 (0.0-1.3) Lymphocytes % 26.1 (24.0-44.0) % Monocytes % 10.3 (0.0-12.0) % Eosinophils % 9.4 H (0.00-5.0) % Basophils % 0.7 (0.0-0.4) % Absolute Granulocytes 5.89 (1.4-6.9) Basophils # 0.08 (0-0.4) ESR (0-15) mm/hr Sodium 140 (137-145) mmol/L Potassium 4.3 (3.5-5.1) mmol/L Chloride 107 (98-107) mmol/L Carbon Dioxide 19 L (22-30) mmol/L Anion Gap 18.0 H (5-15) MEQ/L BUN 32 H (9-20) mg/dL Creatinine 1.87 H (0.66-1.25) mg/dL Estimated GFR 37.2 ML/MIN Glucose 109 H (74-106) mg/dL Lactic Acid (0.4-2.0) Calcium 10.2 (8.4-10.2) mg/dL Total Bilirubin 0.30 (0.2-1.3) mg/dL AST 24 (17-59) U/L ALT 21 (0-50) U/L Alkaline Phosphatase 77 (38-126) U/L Serum Total Protein 7.3 (6.3-8.2) g/dL Albumin 4.3 (3.5-5.0) g/dL Amylase 47 (30-110) U/L Lipase 167 (23-300) U/L Urine Color (YELLOW) Urine Appearance (CLEAR) Urine pH (5-6) Ur Specific [place] (1.005-1.025) Urine Protein (Negative) Urine Ketones (NEGATIVE) Urine Blood (0-5) [place]/ul Urine Nitrite (NEGATIVE) Urine Bilirubin (NEGATIVE) Urine Urobilinogen (0-1) mg/dL Ur Leukocyte Esterase (NEGATIVE) Urine WBC (Auto) (0-5) /HPF Urine RBC (Auto) (0-2) /HPF U Epithel Cells (Auto) (FEW) /HPF Urine Bacteria (Auto) (NEGATIVE) /HPF Urine Culture Reflexed (NO) Urine Glucose (NEGATIVE) mg/dL - Progress Progress: improved, pain not gone completely, re-examined Progress Note: 02/02/21 21:38 80 years old is evaluated for left lower quadrant pain. Has minimally elevated white count of 11, chemistry profile showed chronic renal failure/CKD with renal function around baseline. Mildly low bicarb and mild elevation in gap with negative ketones in the urine. Blood sugar of 109, given 500 mL normal saline. Offered pain medication which he refused. On reevaluation he is feeling better but pain is not completely resolved and still does not want any pain medication. I have obtained CT abdomen pelvis without contrast as patient is allergic to contrast plus has CKD, negative for any acute findings. No UTI. I do not know the exact cause of his pain could be related to previous hernia surgery with some adhesion or musculoskeletal but have ruled out all the major emergencies. Recommended taking pain medications which she has at home for chronic back pain. Discussed signs symptoms of worsening needing return to ER which he seems understanding. Patient is advised to follow-up with his primary care within 48 hours. Counseled pt/family regarding: lab results, diagnosis, need for follow-up, rad results - Departure Departure Disposition: Home Clinical Impression: Left lower quadrant pain CKD (chronic kidney disease) Qualifiers: Chronic kidney disease stage: unspecified stage Qualified Code(s): N18.9 - Chronic kidney disease, unspecified Condition: Stable Critical Care Time: No Referrals: ASHISH SARAVIA [Primary Care Provider] - (1-2 days for reevaluation) Instructions: Acute Abdomen (Belly Pain), Adult (DC) Additional Instructions: Use pain medications which you have at home as needed. Follow-up with your primary care physician for reevaluation. Return to ER for intractable abdominal pain/vomiting/diarrhea/fever chills etc.
[2021-02-02 22:08] VITALS: BP 169/78; PULSE 95; O2SAT 94
--- NOTE | 2021-02-03 21:15 | XRAY ---
Exam: CT of the abdomen and pelvis without IV contrast from 02/02/2021. CTDI: 28.98 mGy Comparison: None. Indication: 80-year-old male with localized left lower quadrant abdominal pain; history of prior bilateral inguinal hernia repair surgeries, cholecystectomy, and partial hepatectomy. History of renal stones. The patient states he has had left lower quadrant abdominal pain for 3 days with loose stools. Technique: Only a non-IV contrast study was performed because of the patient's history of iodine allergy. Non-IV contrast axial images were obtained through the abdomen and pelvis. Reconstructed coronal and sagittal images were created and reviewed. 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 Surgical clips consistent with prior cholecystectomy are seen within the right upper quadrant. The visualized lung bases reveal minimal posterior dependent atelectatic changes. No posterior pleural fluid is seen. The heart size is normal. Coronary artery vascular calcification is seen within the left anterior descending coronary artery, circumflex artery, and distal right coronary artery. The liver is not enlarged. There appears to be some mild hepatic steatosis. No gross hepatic mass or intrahepatic biliary duct distention is seen. Surgical clips consistent with prior cholecystectomy are seen within the right upper quadrant. The spleen appears of unremarkable size and reveals no focal mass. Moderate vascular calcification is seen within a tortuous splenic artery. Incidentally, there is abundant fluid/secretions within the stomach lumen. The pancreas appears of unremarkable size and attenuation. No peripancreatic inflammatory changes, mass, calcifications, or pancreatic duct distention is seen. The adrenal glands appear of normal size and configuration without nodularity. The right kidney has an altered transverse axis measuring about 11.7 cm in length. The left kidney measures about 10.2 cm in length. Mild nonspecific perirenal stranding is seen. There is a tiny amount of vascular calcification within the distal left renal artery. No gross renal mass, hydronephrosis, or renal calculus is seen. The ureters appear of normal caliber and reveal no ureterolith. Moderate atherosclerotic vascular calcification is seen within the abdominal aorta. No abdominal aortic aneurysm or abnormal retroperitoneal lymphadenopathy is seen. Abundant intraperitoneal fat is seen. I note a moderate sized fatty umbilical hernia measuring about 3.9 cm in greatest width. No bowel containing ventral hernia is seen. There is no free intraperitoneal air. I note mild increased attenuation of the subcutaneous fat within the lower abdomen on each side of midline which could be due to injections. Correlate clinically. The bowel appears nonobstructed. Scattered stool is seen throughout the colon. The appendix appears unremarkable within the right lower quadrant. Mild left-sided colonic diverticulosis is seen, most prominent within the sigmoid colon. I see no findings of diverticulitis. No significant colon wall thickening is seen. The remainder of the pelvis reveals an incompletely distended urinary bladder. The seminal vesicles appear unremarkable. The prostate gland is moderately enlarged measuring up to 6.15 cm in width and 5.3 cm in AP depth on axial image #91. A small amount of calcification is seen within the prostate gland. No other pelvic mass, abnormal iliac lymphadenopathy, or free intraperitoneal fluid is seen. A few calcified phleboliths are seen within the lower left pelvis. Some small postinflammatory lymph nodes are seen within each groin. The skeleton reveals no acute fracture or aggressive bone lesion. There is marked degenerative disc disease at L2-L3 and mild degenerative disc disease at L3-L4. In addition, there is about 5 mm anterior subluxation of L4 over L5 without evidence of spondylolysis. Advanced facet joint arthropathy is seen at the lower 3 lumbar interspaces. Prominent anterior lateral osteophytes are seen throughout the visualized lower thoracic spine. I believe there is moderate lumbar canal spinal stenosis at L3-L4. Severe lumbar canal spinal stenosis is seen at L4-L5 (see axial image #58). There is also significant bilateral neural foraminal stenosis at L4-L5. Impression: 1. I note mild left-sided colonic diverticulosis, most pronounced within the sigmoid colon. However, I see no evidence of diverticulitis. The bowel is nonobstructed. 2. Hepatic steatosis, evidence of prior cholecystectomy, and a mild to moderate sized fatty umbilical hernia are noted. 3. Moderate to marked enlargement of the prostate gland with some internal calcifications. Correlate clinically. 4. Skeletal findings, as detailed above. 5. No other acute process is seen within the abdomen or pelvis.
== END 2021-02-02 22:08 | disposition home or self-care (01) ==
LOC: ED 19:27
DX: N18.9 Chronic kidney disease, unspecified (principal); Z79.899 Other long term (current) drug therapy
CPT/HCPCS: 36000; 36415; 74176; 80053; 81001; 82150; 83605; 83690; 85025; 85652; 99284

== ENCOUNTER 2021-03-14 06:02 | Day surgery (SDC) | payer MEDICARE ==
[2021-03-14] MEDS ORDERED: Lactated Ringers 1,000 ML IV SCH (06:30)
[2021-03-14 06:33] VITALS: O2SAT 94
[2021-03-14] MEDS ORDERED: DIPRIVAN 200 MG/20 ML IV ONE ×2 (07:18→07:50)
[2021-03-14 08:56] VITALS: BP 148/84; PULSE 84
--- NOTE | 2021-03-14 14:59 | OP ---
SURGERY DATE/TIME: 03/14/2021 0725 PREOPERATIVE DIAGNOSIS: History of colon polyps. POSTOPERATIVE DIAGNOSIS: Transverse colon polyp and sigmoid diverticulosis. PROCEDURE: Colonoscopy with hot snare polypectomy. SURGEON: Dr. Tabares. ANESTHESIA: MAC. Medications given by anesthesia department. HISTORY: The patient is a 80-year-old white male patient with history of colon polyps presents now for surveillance examination. The patient was appraised of the risks of the procedure including the risk of perforation, phlebitis, untoward reaction to medication, bleeding and missed lesions. The patient verbalized his understanding and desired to have the procedure performed. DESCRIPTION OF PROCEDURE: The patient was given the medications by the anesthesia department. He had continuous pulse oximetry, ECG monitoring, intermittent blood pressure monitoring and tidal CO2 monitoring during the examination. He was placed in the left lateral decubitus position. A digital rectal examination was performed and revealed external hemorrhoids, normal anal sphincter tone, no masses and normal prostate. The flexible Olympus pediatric colonoscope was used to intubate the rectum. A view of the colon was developed sequentially to the cecum. Upon insertion and withdrawal was noted a transverse colon polyp which was removed using hot polypectomy snare and measuring approximately 1.5 cm in diameter. The polyp was retrieved for pathologic evaluation. The scope was re-inserted to the area of the removal and the cautery was proven to be good. Withdrawal of the scope further no additional polyps were noted. There were however noted to be mild sigmoid diverticulosis. The scope was removed from the patient who tolerated the procedure well and was sent back to OP recovery in good condition. The prep was noted to be fair.
== END 2021-03-14 08:55 | disposition home or self-care (01) ==
LOC: SDC 06:02
PROVIDERS: ATTEND Family Medicine
DX: Z12.11 Encounter for screening for malignant neoplasm of colon (principal); D12.3 Benign neoplasm of transverse colon; Z86.010 Personal history of colon polyps; K57.30 Diverticulosis of large intestine without perforation or abscess without bleeding; E11.9 Type 2 diabetes mellitus without complications; Z79.899 Other long term (current) drug therapy
CPT/HCPCS: 82947; 88305; 99100; J2704

== ENCOUNTER 2021-05-17 09:36 | Day surgery (SDC) | payer MEDICARE ==
[2021-05-17] MEDS ORDERED: Lactated Ringers 1,000 ML IV ONE (12:40)
== END 2021-05-17 10:48 | disposition home or self-care (01) ==
LOC: SDC-PAIN 09:36
PROVIDERS: ATTEND Psychiatry & Neurology Pain Medicine
DX: Z53.09 Procedure and treatment not carried out because of other contraindication (principal); M54.16 Radiculopathy, lumbar region
CPT/HCPCS: 82947

== ENCOUNTER 2021-11-08 08:14 | Day surgery (SDC) | payer MEDICARE ==
[2021-11-08] MEDS ORDERED: Sodium Chloride 0.9(Preservative Free) 10 ML IJ ONE (08:15)
[2021-11-08] MEDS ORDERED: Xylocaine 1% Vial 30 ML PF IJ ONE (08:15)
[2021-11-08] MEDS ORDERED: Depo-Medrol 40 MG/ML IM ONE (08:15)
[2021-11-08] MEDS ORDERED: Lactated Ringers 1,000 ML IV ONE (09:33)
[2021-11-08] MEDS ORDERED: DIPRIVAN 200 MG/20 ML IV ONE (10:05)
--- NOTE | 2021-11-08 12:02 | XRAY ---
Indication: Left L4-S1 transforaminal GEE. Intraoperative fluoroscopy provided for 1 minute 5 seconds. 6 digital spot images submitted for interpretation demonstrates posterior needle tips projecting over the expected left L4 and L5 nerve roots. Small amount of contrast injected for needle tip placement. Correlate with intraoperative findings/report.
--- NOTE | 2021-11-08 12:48 | XRAY ---
1 minute and 5 seconds fluoroscopy time for L4-S1 transforaminal GEE.
== END 2021-11-08 10:38 | disposition home or self-care (01) ==
LOC: SDC-PAIN 08:14
PROVIDERS: ATTEND Psychiatry & Neurology Pain Medicine
DX: M54.16 Radiculopathy, lumbar region (principal); E11.9 Type 2 diabetes mellitus without complications; Z79.899 Other long term (current) drug therapy
CPT/HCPCS: 64483; 64484; 72100; 77003; 82947; J1030; J2001; J2704; Q9966

== ENCOUNTER 2022-10-22 17:44 | Emergency (ER) | payer MEDICARE ==
[2022-10-22 18:01] VITALS: O2SAT 95
[2022-10-22] MEDS ORDERED: BABY ASPIRIN 81 MG CHEW PO ONE (18:12)
--- NOTE | 2022-10-22 18:12 | ERPHSYRPT ---
- History of Present Illness Time Seen by Provider: 10/22/22 17:55 Historian: patient Exam Limitations: no limitations Patient Subjective Stated Complaint: C/O chest pain. Patient states he had some chest pain approx one month ago and went to see Dr. Cabrera. Patient indicates that Dr. Cabrera told him that his problem was not cardiac and sent him to see Dr. Fofana. Chest pain started again on Saturday. States Dr. Fofana recommended he go to the ER for evaluation. Triage Nursing Assessment: Patient ambulated back to ER. SOB noted with ambul ation; patient states this is normal for him. He is alert and oriented. No cough present. Skin tone normal. Some edema noted to BLE with left being more swollen than the right. 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 He has seen both his splicing machine operator and supplier relationship director. They have performed a work-up and do not feel that he has a cardiac issue or a primary pulmonary issue. However, he had more pain today and his supplier relationship director told him to come to the emergency department. He currently has very little chest pain on the left side. He is not short of breath. He has no abdominal pain. He said no cough or fever. Patient has hyperlipidemia, hypertension and is a diabetic. Timing/Duration: other Quality: aching, pressure, sharpness Location: other (Left anterior chest) Chest Pain Radiation: arm (Rarely into left arm during the last month) Severity of Pain-Max: mild Severity of Pain-Current: mild Associated Symptoms: denies symptoms Prior Chest Pain/Cardiac Workup: cardiac cath, recently seen/treated Nitro Today/Relief: no nitro taken today Aspirin Treatment Today: 81 mg x 2, provided at home Allergies/Adverse Reactions: amlodipine besylate [From Evan] Allergy (Intermediate, Verified 10/22/22 17:48) Swelling LEG SWELLING olmesartan medoxomil [From Evan] Allergy (Intermediate, Verified 10/22/22 17:48) Swelling LEG SWELLING clonidine Allergy (Unknown, Verified 10/22/22 17:48) Swelling TONGUE SWELLING adhesive Allergy (Verified 10/22/22 17:48) Iodinated Contrast Media Adverse Reaction (Unknown, Verified 10/22/22 17:48) will damage kidneys- do not give without hydration Home Medications: Tamsulosin HCl 0.4 mg [Flomax 0.4 MG] 0.4 mg PO DAILY #0 07/17/12 [History] Insulin Glargine,Hum.rec.anlog [Lantus] 76 unit SQ HS #0 07/18/12 [History] Insulin Lispro [Humalog] 60 units SQ TIDWM #0 07/18/12 [History] Allopurinol 100 mg [Zyloprim 100 mg] 100 mg PO BID 03/21/16 [History] Atorvastatin Calcium [Lipitor] 40 mg PO DAILY 03/21/16 [History] Losartan Potassium 50 mg [Cozaar 50 MG] 50 mg PO DAILY 03/05/20 [History] carvediloL [Carvedilol] 25 mg PO DAILY 03/05/20 [History] Fluticasone/Umeclidin/Vilanter [Trelegy Ellipta 100-62.5-25] 1 ea IH DAILY 06/27/20 [History] Albuterol 8 gm Mdi Hfa [Ventolin Hfa MDI] 90 mcg IH Q6H 03/03/21 [History] Diphenoxylate HCl/Atropine [Lomotil 2.5-0.025 mg Tablet] 1 each PO Q6H PRN PRN 03/03/21 [History] Meclizine HCl 25 mg [Antivert 25 mg] 25 mg PO TIDPRN PRN 03/03/21 [History] Omeprazole 20 mg PO BID PRN PRN 03/03/21 [History] lisinopriL [Lisinopril] 1 tab PO DAILY 03/03/21 [History] Hx Tetanus, Diphtheria Vaccination/Date Given: Yes Hx Influenza Vaccination/Date Given: Yes Hx Pneumococcal Vaccination/Date Given: Yes Immunizations Up to Date: Yes Travel Risk - International Travel Have you traveled outside of the country in past 3 weeks: No - Coronavirus Screening Are you exhibiting any of the following symptoms?: No Close contact with a COVID-19 positive Pt in past 14-21 Days: No - Vaccine Status Have you recieved a Covid-19 vaccination: Yes 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 - Vaccination Dates Date of 2cond Vaccination (if applicable): 11/14/20 - Review of Systems Constitutional: No Symptoms Eyes: No Symptoms Ears, Nose, & Throat: No Symptoms Respiratory: No Symptoms Cardiac: Chest Pain Abdominal/Gastrointestinal: No Symptoms Genitourinary Symptoms: No Symptoms Musculoskeletal: No Symptoms Skin: No Symptoms Neurological: No Symptoms Psychological: No Symptoms Endocrine: No Symptoms Hematologic/Lymphatic: No Symptoms Immunological/Allergic: No Symptoms All Other Systems: Reviewed and Negative - Past Medical History Pertinent Past Medical History: Yes Neurological History: Stroke ENT History: Cataracts Cardiac History: High Cholesterol, Hypertension Respiratory History: COPD, Sleep Apnea, Other Endocrine Medical History: Diabetes Type II, Liver Disease, Other Musculoskeletal History: Osteoarthritis GI Medical History: GERD, Gallbladder Disease, GI Bleed, Hemorrhoids, Polyps History: Other Psycho-Social History: No Pertinent History Male Reproductive Disorders: Prostate Problems Other Medical History: ASBESTOS EXPOSURE, CKD STAGE 3. HX OF COVID - Past Surgical History Past Surgical History: Yes Neuro Surgical History: No Pertinent History Cardiac: Cardiac Catheterization Respiratory: No Pertinent History Gastrointestinal: Cholecystectomy, Hernia Repair Genitourinary: No Pertinent History Musculoskeletal: Orthopedic Surgery Male Surgical History: Vasectomy Other Surgical History: arthroscopy with cartilage removal of right knees,. rivera rgery done on liver- infection trimmed off liver from complications from gallbadder removal. right ear drum/canal/ear bone surgery 03/01/16. triple hernia repair 1977 - Social History Smoking Status: Former smoker How long have you smoked: quit in 68 Exposure to second hand smoke: No Drug Use: none Patient Lives Alone: No - Nursing Vital Signs Nursing Vital Signs: Initial Vital Signs Temperature 97.7 F 10/22/22 17:49 Pulse Rate 96 H 10/22/22 17:49 Respiratory Rate 28 H 10/22/22 17:49 Blood Pressure 193/86 10/22/22 17:49 O2 Sat by Pulse Oximetry 95 10/22/22 17:49 Pain Scale Pain Intensity 5 - Physical Exam General Appearance: no apparent distress, alert, anxiety, obese Eye Exam: PERRL/EOMI, eyes nml inspection Ears, Nose, Throat Exam: normal ENT inspection, moist mucous membranes Neck Exam: normal inspection, non-tender, supple, full range of motion Respiratory Exam: normal breath sounds, lungs clear, airway intact, No chest tenderness, No respiratory distress Cardiovascular Exam: regular rate/rhythm, normal heart sounds, normal peripheral pulses Gastrointestinal/Abdomen Exam: soft, normal bowel sounds, No tenderness Rectal Exam: not done Back Exam: normal inspection, normal range of motion, No CVA tenderness, No vertebral tenderness Extremity Exam: normal inspection, normal range of motion, pelvis stable Neurologic Exam: alert, oriented x 3, cooperative, 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 No acute ischemic changes on today's twelve-lead EKG.) Ordered Tests: Active Orders 24 hr Category Date Time Status Box Office Agent STAT Care 10/22/22 18:26 Active EKG-ER Only STAT Care 10/22/22 18:12 Active IV Insertion STAT Care 10/22/22 18:12 Active Pulse Oximetry (ED) STAT Care 10/22/22 18:12 Active CHEST 1 VIEW (PORTABLE) Stat Exams 10/22/22 18:12 Taken CBC W DIFF Stat Lab 10/22/22 18:15 Completed D-DIMER QUANTITATIVE Stat Lab 10/22/22 18:15 Completed TROPONIN Q4H Lab 10/22/22 22:15 Ordered TROPONIN Q4H Lab 10/23/22 02:15 Ordered Medication Summary Discontinued Medications Generic Name Dose Route Start Last Admin Trade Name Froyq PRN Reason Stop Dose Admin Aspirin 324 mg 10/22/22 18:12 10/22/22 18:29 Aspirin 81 Mg Tab.Chew PO 10/22/22 18:13 324 mg STAT ONE Administration Enoxaparin Sodium 140 mg 10/22/22 19:57 10/22/22 20:02 Enoxaparin Sodium 80 Mg/0.8 Ml Syringe SQ 10/22/22 19:58 140 mg STAT ONE Administration Enoxaparin Sodium Confirm 10/22/22 20:01 Enoxaparin Sodium 80 Mg/0.8 Ml Syringe Administered 10/22/22 20:02 Dose 160 mg SQ .STK-MED ONE Lab/Rad Data: Laboratory Result Diagrams 10/22/22 18:15 10/22/22 18:15 Laboratory Results 10/22/22 10/22/22 10/22/22 Range/Units 18:15 18:15 18:15 WBC (4.0-10.5) x10^3/uL RBC (4.1-5.6) x10^6/uL Hgb (12.5-18.0) g/dL Hct (42-50) % MCV (78-100) fL MCH (26-32) pg MCHC (32-36) g/dL RDW (11.5-14.0) % Plt Count (150-450) x10^3/uL MPV (7.5-11.0) fL Gran % (36.0-66.0) % Immature Gran % (Auto) (0.00-0.4) % Nucleat RBC Rel Count (0.00-0.1) % Eos # (Auto) (0-0.5) x10^3/uL Immature Gran # (Auto) (0.00-0.03) x10^3u/L Absolute Lymphs (auto) (1.0-4.6) x10^3/uL Absolute Monos (auto) (0.0-1.3) x10^3/uL Absolute Nucleated RBC (0.00-0.01) x10^3u/L Lymphocytes % (24.0-44.0) % Monocytes % (0.0-12.0) % Eosinophils % (0.00-5.0) % Basophils % (0.0-0.4) % Absolute Granulocytes (1.4-6.9) x10^3/uL Basophils # (0-0.4) x10^3/uL D-Dimer 1.51 H* (0.0-0.50) mg/L Sodium Direct 136 L (138-146) mmol/L Potassium 4.6 (3.5-4.9) mmol/L Chloride 102 (98-109) mmol/L Carbon Dioxide 26 (24-29) mmol/L Venous BUN 42 H (8-26) mg/dL Creatinine 1.9 H (0.6-1.3) mg/dL Glucose 302 H (70-105) mg/dL Ionized Calcium 1.28 (1.12-1.32) mmol/L Troponin 0.01 (0.00-0.03) ng/mL 10/22/22 Range/Units 18:15 WBC 7.7 (4.0-10.5) x10^3/uL RBC 4.44 (4.1-5.6) x10^6/uL Hgb 13.0 (12.5-18.0) g/dL Hct 39.6 L (42-50) % MCV 89.2 (78-100) fL MCH 29.3 (26-32) pg MCHC 32.8 (32-36) g/dL RDW 12.5 (11.5-14.0) % Plt Count 254 (150-450) x10^3/uL MPV 9.0 (7.5-11.0) fL Gran % 53.9 (36.0-66.0) % Immature Gran % (Auto) 0.3 (0.00-0.4) % Nucleat RBC Rel Count 0.0 (0.00-0.1) % Eos # (Auto) 0.74 H (0-0.5) x10^3/uL Immature Gran # (Auto) 0.02 (0.00-0.03) x10^3u/L Absolute Lymphs (auto) 1.99 (1.0-4.6) x10^3/uL Absolute Monos (auto) 0.73 (0.0-1.3) x10^3/uL Absolute Nucleated RBC 0.00 (0.00-0.01) x10^3u/L Lymphocytes % 25.8 (24.0-44.0) % Monocytes % 9.5 (0.0-12.0) % Eosinophils % 9.6 H (0.00-5.0) % Basophils % 0.9 (0.0-0.4) % Absolute Granulocytes 4.16 (1.4-6.9) x10^3/uL Basophils # 0.07 (0-0.4) x10^3/uL D-Dimer (0.0-0.50) mg/L Sodium Direct (138-146) mmol/L Potassium (3.5-4.9) mmol/L Chloride (98-109) mmol/L Carbon Dioxide (24-29) mmol/L Venous BUN (8-26) mg/dL Creatinine (0.6-1.3) mg/dL Glucose (70-105) mg/dL Ionized Calcium (1.12-1.32) mmol/L Troponin (0.00-0.03) ng/mL - Progress Progress: re-examined Air Movement: good Progress Note: 10/22/22 20:06 Chest x-ray was interpreted by me. There is no acute cardiopulmonary process. There is borderline cardiomegaly. 10/22/22 20:06 Patient medical issues 1 of moderate complexity. The level of complexity and the work-up performed was based on the patient's past medical history, review of the patient's medication list, review of the patient's drug allergy list, history of present illness and physical findings on examination. Work-up performed was placement of intravenous line, CBC, CMP, D-dimer, twelve-lead EKG and troponin level. The patient's troponin level is normal but there is an elevated D-dimer. Patient's kidney function prohibits us at this time to perform a CTA of the chest. Therefore a VQ scan will be ordered for him. Patient is very stable and reliable. He does not want to be admitted into the hospital and wait for VQ scan that would become available on , 10/25/2022. Therefore, we will provide him with subcutaneous Lovenox now and then 5 home doses. The results of the VQ scan will be sent to Dr. Saravia. This was discussed with the patient. His VQ scan is scheduled for , 10/25/2022 at 10:30 in the morning. He is told to be there between 10 and 10:15 in the morning. Blood Culture(s) Obtained: No Antibiotics given: No Counseled pt/family regarding: lab results, diagnosis, need for follow-up, rad results Medical Desision Making - Discussion of managment Reviewed:: Test results Agreed on:: Treatment plan, need for follow-up - Diagnostic Testing Diagnostic test were ordered, analyzed, and reviewed by me: Yes Radiological Interpretation: Interpreted by me - Risk of complications The pt has a mod risk of morbidity or mortality based on: Need for prescription drug management - Departure Departure Disposition: Home Clinical Impression: Chest pain, Elevated d-dimer Condition: Stable Critical Care Time: No Referrals: ASHISH SARAVIA [Primary Care Provider] - Follow up/PCP as directed Additional Instructions: Take the Lovenox as prescribed. Return to the [facility] radiology department between 10 AM and 10:15 AM on 10/25/2022 for your V/Q nuclear medicine scan of your lungs. Follow-up with Dr. Saravia's office at approximately 2 PM on the same day for your results and further instruction/management. Prescriptions: Enoxaparin Sodium [Lovenox] 140 mg SQ BID #5 units
[2022-10-22 18:23] LABS: Absolute Neutrophil Ct (ANC) 4.16 x10^3/uL (1.4-6.9); BASOPHIL % 0.9 % (0.0-0.4); Basophil (Absolute #) 0.07 x10^3/uL (0-0.4); Eosinophil % 9.6 % (0.00-5.0); Eosinophil (Absolute #) 0.74 x10^3/uL (0-0.5); Hematocrit 39.6 % (42-50); IMMATURE GRAN # 0.02 x10^3u/L (0.00-0.03); IMMATURE GRAN % 0.3 % (0.00-0.4); Lymphocyte (Absolute #) 1.99 x10^3/uL (1.0-4.6); Lymphocytes % 25.8 % (24.0-44.0); Mean Cell Volume 89.2 fL (78-100); Mean Corpuscular Hemoglobin 29.3 pg (26-32); Mean Corpuscular Hgb Concent. 32.8 g/dL (32-36); Monocyte (Absolute #) 0.73 x10^3/uL (0.0-1.3); Monocytes % 9.5 % (0.0-12.0); Neutrophil % 53.9 % (36.0-66.0); Platelet Count 254 x10^3/uL (150-450); Red Blood Count 4.44 x10^6/uL (4.1-5.6); Red Cell Distribution Width 12.5 % (11.5-14.0); White Blood Count 7.7 x10^3/uL (4.0-10.5)
[2022-10-22 18:43] LABS: ISTAT CREA 1.9 mg/dL (0.6-1.3); ISTAT K 4.6 mmol/L (3.5-4.9); ISTAT iCA 1.28 mmol/L (1.12-1.32)
[2022-10-22 19:55] VITALS: PULSE 76
[2022-10-22] MEDS ORDERED: ENOXAPARIN SODIUM SQ ONE ×2 (19:57→20:01)
[2022-10-22 20:11] VITALS: BP 177/96
--- NOTE | 2022-10-23 08:39 | XRAY ---
Indication: Chest pain. Comparison: June 27, 2020 Portable chest is now clear. Heart not enlarged. Bony thorax intact again with osteopenia mild degenerative changes. No new acute findings.
== END 2022-10-22 20:23 | disposition home or self-care (01) ==
LOC: ED 17:44
DX: R07.9 Chest pain, unspecified (principal); R79.1 Abnormal coagulation profile; E78.5 Hyperlipidemia, unspecified; I12.9 Hypertensive chronic kidney disease with stage 1 through stage 4 chronic kidney disease, or unspecified chronic kidney disease; E11.22 Type 2 diabetes mellitus with diabetic chronic kidney disease; N18.30 Chronic kidney disease, stage 3 unspecified; Z79.01 Long term (current) use of anticoagulants; Z79.4 Long term (current) use of insulin; Z79.899 Other long term (current) drug therapy; Z86.16 Personal history of COVID-19
CPT/HCPCS: 36000; 36415; 71045; 80047; 84484; 85025; 85379; 93005; 93041; 94760; 96372; 99284; J1650; A9270-GY

== ENCOUNTER 2023-06-20 13:03 | Emergency (ER) | payer MEDICARE ==
--- NOTE | 2023-06-20 13:16 | ERPHSYRPT ---
- History of Present Illness Time Seen by Provider: 06/20/23 13:15 Source: patient Exam Limitations: no limitations Physician History: This is an 82-year-old white male patient of Dr. Tabares who was sent to us from the outpatient clinic with complaints of neck pain and some chest tightness. Patient was treated at that clinic for otitis media as an outpatient. Antibi otics were sent to his pharmacy. Patient's blood pressure was elevated at the clinic with his systolic blood pressure in the 180s. Patient has a history of hypertension, insulin-dependent diabetes, gastroesophageal reflux disease, hypertension, COPD, stage III renal disease and hyperlipidemia. Patient's gate clerk is Dr. Cabrera. Patient's pain specialist is Dr. Desouza. He also sees a whizzer operator. On 10/25/2022 patient had a normal VQ scan. On 10/22/2022 patient's twelve-lead EKG shows a heart rate of 86 and a normal sinus rhythm with a prolonged MS interval. Patient's primary complaint is that of neck pain and spasm in the left posterior lateral region as well as chest tightness. Severity: mild Modifying Factors: Improves With: movement (To moderate movement of the neck to and fro and up and down elicits discomfort in the distribution of the left trapezius muscle) Associated Symptoms: denies symptoms Allergies/Adverse Reactions: amlodipine besylate [From Evan] Allergy (Intermediate, Verified 06/20/23 13:32) Swelling LEG SWELLING olmesartan medoxomil [From Evan] Allergy (Intermediate, Verified 06/20/23 13:32) Swelling LEG SWELLING clonidine Allergy (Unknown, Verified 06/20/23 13:32) Swelling TONGUE SWELLING adhesive Allergy (Verified 06/20/23 13:32) Iodinated Contrast Media Adverse Reaction (Unknown, Verified 06/20/23 13:32) will damage kidneys- do not give without hydration Home Medications: Tamsulosin HCl 0.4 mg [Flomax 0.4 MG] 0.4 mg PO DAILY #0 07/17/12 [History] Insulin Glargine,Hum.rec.anlog [Lantus] 76 unit SQ HS #0 07/18/12 [History] Insulin Lispro [Humalog] 60 units SQ TIDWM #0 07/18/12 [History] Allopurinol 100 mg [Zyloprim 100 mg] 100 mg PO BID 03/21/16 [History] Atorvastatin Calcium [Lipitor] 40 mg PO DAILY 03/21/16 [History] Losartan Potassium 50 mg [Cozaar 50 MG] 50 mg PO DAILY 03/05/20 [History] carvediloL [Carvedilol] 25 mg PO DAILY 03/05/20 [History] Fluticasone/Umeclidin/Vilanter [Trelegy Ellipta 100-62.5-25] 1 ea IH DAILY 06/27/20 [History] Albuterol 8 gm Mdi Hfa [Ventolin Hfa MDI] 90 mcg IH Q6H 03/03/21 [History] Diphenoxylate HCl/Atropine [Lomotil 2.5-0.025 mg Tablet] 1 each PO Q6H PRN PRN 03/03/21 [History] Meclizine HCl 25 mg [Antivert 25 mg] 25 mg PO TIDPRN PRN 03/03/21 [History] Omeprazole 20 mg PO BID PRN PRN 03/03/21 [History] lisinopriL [Lisinopril] 1 tab PO DAILY 03/03/21 [History] Hx Tetanus, Diphtheria Vaccination/Date Given: Yes Hx Influenza Vaccination/Date Given: Yes Hx Pneumococcal Vaccination/Date Given: Yes Travel Risk - International Travel Have you traveled outside of the country in past 3 weeks: No - Coronavirus Screening Are you exhibiting any of the following symptoms?: No Close contact with a COVID-19 positive Pt in past 14-21 Days: No - Vaccine Status Have you recieved a Covid-19 vaccination: Yes Heading Matcher And Assembler: Moderna - Vaccination Dates Date of 2cond Vaccination (if applicable): 11/14/20 - Review of Systems Constitutional: No Symptoms Eyes: No Symptoms Ears, Nose, & Throat: No Symptoms Respiratory: No Symptoms Cardiac: Chest Pain (Chronic intermittent left chest tightness) Abdominal/Gastrointestinal: No Symptoms Genitourinary Symptoms: No Symptoms Musculoskeletal: Neck Pain (With neck movement patient has left posterior lateral) Skin: No Symptoms Neurological: No Symptoms Psychological: No Symptoms Endocrine: No Symptoms Hematologic/Lymphatic: No Symptoms Immunological/Allergic: No Symptoms All Other Systems: Reviewed and Negative - Past Medical History Pertinent Past Medical History: Yes Neurological History: Stroke ENT History: Cataracts Cardiac History: High Cholesterol, Hypertension Respiratory History: COPD, Sleep Apnea, Other Endocrine Medical History: Diabetes Type II, Liver Disease, Other Musculoskeletal History: Osteoarthritis GI Medical History: GERD, Gallbladder Disease, GI Bleed, Hemorrhoids, Polyps History: Other Psycho-Social History: No Pertinent History Male Reproductive Disorders: Prostate Problems Other Medical History: ASBESTOS EXPOSURE, CKD STAGE 3. HX OF COVID - Past Surgical History Past Surgical History: Yes Neuro Surgical History: No Pertinent History Cardiac: Cardiac Catheterization Respiratory: No Pertinent History Gastrointestinal: Cholecystectomy, Hernia Repair Genitourinary: No Pertinent History Musculoskeletal: Orthopedic Surgery Male Surgical History: Vasectomy Other Surgical History: arthroscopy with cartilage removal of right knees,. surgery done on liver- infection trimmed off liver from complications from gallbadder removal. right ear drum/canal/ear bone surgery 03/01/16. triple hernia repair 1977 - Social History Smoking Status: Former smoker How long have you smoked: quit in Exposure to second hand smoke: No Drug Use: none Patient Lives Alone: No - Nursing Vital Signs Nursing Vital Signs: Initial Vital Signs Temperature 97.9 F 06/20/23 13:22 Pulse Rate 87 06/20/23 13:22 Respiratory Rate 18 06/20/23 13:22 Blood Pressure 182/89 06/20/23 13:22 O2 Sat by Pulse Oximetry 95 06/20/23 13:22 Pain Scale Pain Intensity 8 - Physical Exam General Appearance: no apparent distress, alert, anxiety, obese Eye Exam: PERRL/EOMI, eyes nml inspection Ears, Nose, Throat Exam: normal ENT inspection, moist mucous membranes Neck Exam: normal inspection, supple, full range of motion (Tenderness to palpation left posterior lateral trapezius muscle distribution) Respiratory Exam: normal breath sounds, lungs clear, airway intact, No chest tenderness, No respiratory distress Cardiovascular Exam: regular rate/rhythm, normal heart sounds, normal peripheral pulses Gastrointestinal/Abdomen Exam: soft, normal bowel sounds, No tenderness Rectal Exam: not done Back Exam: normal inspection, normal range of motion, No CVA tenderness, No vertebral tenderness Extremity Exam: normal inspection, normal range of motion, pelvis stable Neurologic Exam: alert, oriented x 3, cooperative, weight control engineer II-XII nml as tested, normal mood/affect, nml cerebellar function, nml station & gait, sensation nml Skin Exam: normal color, warm, dry Lymphatic Exam: No adenopathy SpO2 Interpretation: normal O2 Delivery: Room Air - Course Nursing assessment & vital signs reviewed: Yes Ordered Tests: Active Orders 24 hr Category Date Time Status EKG-ER Only STAT Care 06/20/23 13:27 Active IV Insertion STAT Care 06/20/23 13:27 Active Pulse Oximetry (ED) STAT Care 06/20/23 13:27 Active HEAD WITHOUT CONTRAST [CT] Stat Exams 06/20/23 13:26 Completed NECK WO CONTRAST [CT] Stat Exams 06/20/23 13:26 Completed CBC W DIFF Stat Lab 06/20/23 13:48 Completed CMP Stat Lab 06/20/23 13:48 Completed PROTIME WITH INR Stat Lab 06/20/23 13:48 Completed TROPONIN Q4H Lab 06/20/23 13:48 Completed TROPONIN Q4H Lab 06/20/23 17:30 Ordered TROPONIN Q4H Lab 06/20/23 21:30 Ordered Medication Summary Discontinued Medications Generic Name Dose Route Start Last Admin Trade Name Froyq PRN Reason Stop Dose Admin Aspirin 324 mg 06/20/23 13:27 06/20/23 14:13 Aspirin 81 Mg Tab.Chew PO 06/20/23 13:28 324 mg STAT ONE Administration Aspirin Confirm 06/20/23 14:03 Aspirin 81 Mg Tab.Chew Administered 06/20/23 14:04 Dose 81 mg .ROUTE .STK-MED ONE Aspirin Confirm 06/20/23 14:05 Aspirin 81 Mg Tab.Chew Administered 06/20/23 14:06 Dose 81 mg .ROUTE .STK-MED ONE Enalaprilat 0.625 mg 06/20/23 13:28 06/20/23 14:19 Enalaprilat 2.5 Mg Injection IV 06/20/23 13:29 0.625 mg STAT ONE Administration Enalaprilat Confirm 06/20/23 14:03 Enalaprilat 2.5 Mg Injection Administered 06/20/23 14:04 Dose 2.5 mg IV .STK-MED ONE Enalaprilat Confirm 06/20/23 14:17 Enalaprilat 2.5 Mg Injection Administered 06/20/23 14:18 Dose 2.5 mg IV .STK-MED ONE Lab/Rad Data: Laboratory Result Diagrams 06/20/23 13:48 06/20/23 13:48 Laboratory Results 06/20/23 06/20/23 06/20/23 Range/Units 13:48 13:48 13:48 WBC (4.0-10.5) x10^3/uL RBC (4.1-5.6) x10^6/uL Hgb (12.5-18.0) g/dL Hct (42-50) % MCV (78-100) fL MCH (26-32) pg MCHC (32-36) g/dL RDW (11.5-14.0) % Plt Count (150-450) x10^3/uL MPV (7.5-11.0) fL Gran % (36.0-66.0) % Immature Gran % (Auto) (0.00-0.4) % Nucleat RBC Rel Count (0.00-0.1) % Eos # (Auto) (0-0.5) x10^3/uL Immature Gran # (Auto) (0.00-0.03) x10^3u/L Absolute Lymphs (auto) (1.0-4.6) x10^3/uL Absolute Monos (auto) (0.0-1.3) x10^3/uL Absolute Nucleated RBC (0.00-0.01) x10^3u/L Lymphocytes % (24.0-44.0) % Monocytes % (0.0-12.0) % Eosinophils % (0.00-5.0) % Basophils % (0.0-0.4) % Absolute Granulocytes (1.4-6.9) x10^3/uL Basophils # (0-0.4) x10^3/uL PT 10.5 (9.4-12.5) SECONDS INR 0.96 (0.8-3.0) Sodium 139 (137-145) mmol/L Potassium 4.5 (3.5-5.1) mmol/L Chloride 106 (98-107) mmol/L Carbon Dioxide 26 (22-30) mmol/L Anion Gap 12.0 (5-15) MEQ/L BUN 37 H (9-20) mg/dL Creatinine 2.10 H (0.66-1.25) mg/dL Estimated GFR 31.0 ML/MIN Glucose 147 H (74-106) mg/dL Calcium 10.2 (8.4-10.2) mg/dL Total Bilirubin 0.40 (0.2-1.3) mg/dL AST 21 (17-59) U/L ALT 27 (0-50) U/L Alkaline Phosphatase 73 (38-126) U/L Troponin I < 0.012 (0.000-0.034) ng/mL Serum Total Protein 7.6 (6.3-8.2) g/dL Albumin 2.7 L (3.5-5.0) g/dL 06/20/23 Range/Units 13:48 WBC 9.8 (4.0-10.5) x10^3/uL RBC 4.49 (4.1-5.6) x10^6/uL Hgb 13.5 (12.5-18.0) g/dL Hct 40.9 L (42-50) % MCV 91.1 (78-100) fL MCH 30.1 (26-32) pg MCHC 33.0 (32-36) g/dL RDW 12.0 (11.5-14.0) % Plt Count 226 (150-450) x10^3/uL MPV 8.8 (7.5-11.0) fL Gran % 63.4 (36.0-66.0) % Immature Gran % (Auto) 0.3 (0.00-0.4) % Nucleat RBC Rel Count 0.0 (0.00-0.1) % Eos # (Auto) 0.80 H (0-0.5) x10^3/uL Immature Gran # (Auto) 0.03 (0.00-0.03) x10^3u/L Absolute Lymphs (auto) 1.69 (1.0-4.6) x10^3/uL Absolute Monos (auto) 0.97 (0.0-1.3) x10^3/uL Absolute Nucleated RBC 0.00 (0.00-0.01) x10^3u/L Lymphocytes % 17.3 L (24.0-44.0) % Monocytes % 9.9 (0.0-12.0) % Eosinophils % 8.2 H (0.00-5.0) % Basophils % 0.9 (0.0-0.4) % Absolute Granulocytes 6.19 (1.4-6.9) x10^3/uL Basophils # 0.09 (0-0.4) x10^3/uL PT (9.4-12.5) SECONDS INR (0.8-3.0) Sodium (137-145) mmol/L Potassium (3.5-5.1) mmol/L Chloride (98-107) mmol/L Carbon Dioxide (22-30) mmol/L Anion Gap (5-15) MEQ/L BUN (9-20) mg/dL Creatinine (0.66-1.25) mg/dL Estimated GFR ML/MIN Glucose (74-106) mg/dL Calcium (8.4-10.2) mg/dL Total Bilirubin (0.2-1.3) mg/dL AST (17-59) U/L ALT (0-50) U/L Alkaline Phosphatase (38-126) U/L Troponin I (0.000-0.034) ng/mL Serum Total Protein (6.3-8.2) g/dL Albumin (3.5-5.0) g/dL - Progress Progress: improved Progress Note: 06/20/23 15:23 This patient's medical issue is 1 of moderate complexity. Level complex in the workup performed is based on review of the patient's past medical history, review the patient's medication list, review the patient's drug allergy list, history of present illness and physical findings on examination. The workup in this patient includes placement of intravenous line, CT scan of the head and neck without contrast, CBC, CMP, troponin level, twelve-lead EKG. I interpreted the patient's lab work results. Patient has no acute, emergent findings on his laboratory data results. CT scan of the neck without contrast shows lordotic straightening and minimal dextroscoliosis. No acute findings. No compression fractures. No subluxation. There are degenerative spondylosis findings. There is bilateral carotid calcifications. These findings were discussed with the patient. CT scan of the head without contrast shows a nonacute senile brain with remote lacunar infarct of left basal ganglia. These CT scan studies were interpreted by the radiologist and I reviewed the impression. 06/20/23 15:25 Patient does not have any chest pain or chest tightness. Counseled pt/family regarding: lab results, diagnosis, need for follow-up, rad results Medical Desision Making - Diagnostic Testing Diagnostic test were ordered, analyzed, and reviewed by me: Yes Radiological Interpretation: Reviewed by me, Teleradiologist Report - Risk of complications The pt has a mod risk of morbidity or mortality based on: Need for prescription drug management - Departure Departure Disposition: Home Clinical Impression: Neck muscle spasm, Hypertension Condition: Stable Critical Care Time: No Referrals: SAHISH TABARES [Primary Care Provider] - Follow up/PCP as directed Additional Instructions: Call your primary care provider and gate clerk tomorrow, 06/21/2023, to make arrangements for further evaluation and follow-up. Take your medications as prescribed. May have the area on your left posterior lateral neck massaged and use warm compresses to the site. This can be done 2-3 times a day. Prescriptions: Orphenadrine Citrate 100 mg [Norflex 100 MG Tablet] 100 mg PO BID #10 tab
[2023-06-20] MEDS ORDERED: BABY ASPIRIN 81 MG CHEW PO ONE (13:27)
[2023-06-20] MEDS ORDERED: ENALAPRILAT 2.5 MG INJECTION IV ONE ×3 (13:28→14:17)
[2023-06-20 13:31] VITALS: TEMP 97.9
[2023-06-20 13:52] LABS: Absolute Neutrophil Ct (ANC) 6.19 x10^3/uL (1.4-6.9); BASOPHIL % 0.9 % (0.0-0.4); Basophil (Absolute #) 0.09 x10^3/uL (0-0.4); Eosinophil % 8.2 % (0.00-5.0); Hematocrit 40.9 % (42-50); Hemoglobin 13.5 g/dL (12.5-18.0); IMMATURE GRAN # 0.03 x10^3u/L (0.00-0.03); IMMATURE GRAN % 0.3 % (0.00-0.4); Lymphocyte (Absolute #) 1.69 x10^3/uL (1.0-4.6); Lymphocytes % 17.3 % (24.0-44.0); Mean Cell Volume 91.1 fL (78-100); Mean Corpuscular Hemoglobin 30.1 pg (26-32); Mean Platelet Volume 8.8 fL (7.5-11.0); Monocyte (Absolute #) 0.97 x10^3/uL (0.0-1.3); Monocytes % 9.9 % (0.0-12.0); Neutrophil % 63.4 % (36.0-66.0); Platelet Count 226 x10^3/uL (150-450); Red Blood Count 4.49 x10^6/uL (4.1-5.6); White Blood Count 9.8 x10^3/uL (4.0-10.5)
[2023-06-20] MEDS ORDERED: BABY ASPIRIN 81 MG CHEW ONE ×2 (14:03→14:05)
[2023-06-20 14:11] LABS: BILIRUBIN,TOTAL 0.4 mg/dL (0.2-1.3); Calcium 10.2 mg/dL (8.4-10.2); Creatinine 1 2.1 mg/dL (0.66-1.25); INR 0.96 (0.8-3.0); PROTIME 10.5 SECONDS (9.4-12.5); Potassium 4.5 mmol/L (3.5-5.1); Total Protein 7.6 g/dL (6.3-8.2)
--- NOTE | 2023-06-20 14:19 | XRAY ---
Indication: Headache. Hypertension. Multiple contiguous axial images obtained through the head without contrast. Comparison: None Age-appropriate global atrophy and minimal periventricular degenerative micro-ischemia bilaterally. Remote lacunar infarct left basal ganglia. No acute intracranial hemorrhage, abnormal extra-axial fluid collection, or mass effect. Fourth ventricle is midline without hydrocephalus. Bony calvarium intact. 1.3 cm left maxillary sinus polyp/retention cyst. Remaining visualized paranasal sinuses and mastoid air cells are clear. Impression: Nonacute senile brain with remote lacunar infarct left basal ganglia. Incidental left maxillary sinus polyp/retention cyst.
--- NOTE | 2023-06-20 14:28 | XRAY ---
Indication: Headache. Hypertension. Left neck pain. Torticollis. Multiple contiguous axial images obtained through the cervical spine. Sagittal and coronal reformatted images obtained. Comparison: None Osseous structures demineralized. Axial images negative for acute fracture or suspicious bony lesions. Mild/moderate multilevel cervicothoracic degenerative endplate spurring greatest at C5-C6. Also moderate atlantoaxial degenerative changes and moderate multilevel bilateral degenerative facet hypertrophy. Sagittal and coronal reformatted images demonstrates lordotic straightening and minimal dextroscoliosis centered at C3-C4. 4-5 mm anterolisthesis C4 on C5. C5-C6 and T2-T3 disc space loss. No acute compression fracture or jumped facet. Normal appearing craniocervical junction. Visualized noncontrasted soft tissues demonstrates mild scattered carotid calcifications bilaterally. Lung apices unremarkable.. Patient is nearly edentulous. Impression: 1. Cervical lordotic straightening and minimal dextroscoliosis. No acute findings. 2. Chronic findings including osteopenia, mild/moderate multilevel cervicothoracic degenerative spondylosis, C4 grade 1 spondylolisthesis, and bilateral carotid calcifications..
[2023-06-20 14:59] VITALS: RESP 31; O2SAT 95
[2023-06-20 15:36] VITALS: BP 165/87; PULSE 81
[2023-06-25 21:21] LABS: ALBUMIN 4.2 g/dL (3.5-5.0)
== END 2023-06-20 15:46 | disposition home or self-care (01) ==
LOC: ED 13:03
DX: M62.838 Other muscle spasm (principal); M54.2 Cervicalgia; I12.9 Hypertensive chronic kidney disease with stage 1 through stage 4 chronic kidney disease, or unspecified chronic kidney disease; R07.9 Chest pain, unspecified; E11.22 Type 2 diabetes mellitus with diabetic chronic kidney disease; N18.30 Chronic kidney disease, stage 3 unspecified; E78.5 Hyperlipidemia, unspecified; Z79.4 Long term (current) use of insulin; Z79.899 Other long term (current) drug therapy; Z86.16 Personal history of COVID-19; Z86.73 Personal history of transient ischemic attack (TIA), and cerebral infarction without residual deficits
CPT/HCPCS: 36000; 36415; 70450; 70490; 80053; 84484; 85025; 85610; 93005; 94760; 96374; 99283; A9270-GY

== ENCOUNTER 2024-09-15 16:39 | Emergency (ER) | payer MEDICARE ==
[2024-09-15 16:57] VITALS: PULSE 84; TEMP 97.7
--- NOTE | 2024-09-15 16:58 | ERPHSYRPT ---
- History of Present Illness Time Seen by Provider: 09/15/24 16:50 Source: family Exam Limitations: no limitations Physician History: This is an 83-year-old white male patient who is diabetic and arrives by private vehicle and is a patient Dr. Tabares for 2 main issues. The first is that he has a right foot second toe dorsal aspect tiny abscess present that is tender. He was evaluated by his automotive mechanical engineer 1 week ago and he was given instructions to apply antibiotic ointment to the site. The redness has improved per his report but now there is a small abscess present and it is more tender than 1 week ago. In addition, the second issue is that of a right earache. Patient has not had a fever. He has no hearing difficulty. He denies chest pain and he denies shortness of breath. He is not allergic to sulfa drugs. Timing/Duration: week(s) (1) Severity: mild Associated Symptoms: denies symptoms Allergies/Adverse Reactions: amlodipine besylate [From Evan] Allergy (Intermediate, Verified 06/20/23 13:32) Swelling LEG SWELLING olmesartan medoxomil [From Evan] Allergy (Intermediate, Verified 06/20/23 13:32) Swelling LEG SWELLING clonidine Allergy (Unknown, Verified 06/20/23 13:32) Swelling TONGUE SWELLING adhesive Allergy (Verified 06/20/23 13:32) Iodinated Contrast Media Adverse Reaction (Unknown, Verified 06/20/23 13:32) will damage kidneys- do not give without hydration Home Medications: Tamsulosin HCl 0.4 mg [Flomax 0.4 MG] 0.4 mg PO DAILY #0 07/17/12 [History] Insulin Glargine,Hum.rec.anlog [Lantus] 76 unit SQ HS #0 07/18/12 [History] Insulin Lispro [Humalog] 60 units SQ TIDWM #0 07/18/12 [History] Allopurinol 100 mg [Zyloprim 100 mg] 100 mg PO BID 03/21/16 [History] Atorvastatin Calcium [Lipitor] 40 mg PO DAILY 03/21/16 [History] Losartan Potassium 50 mg [Cozaar 50 MG] 50 mg PO DAILY 03/05/20 [History] carvediloL [Carvedilol] 25 mg PO DAILY 03/05/20 [History] Fluticasone/Umeclidin/Vilanter [Trelegy Ellipta 100-62.5-25] 1 ea IH DAILY 06/27/20 [History] Albuterol 8 gm Mdi Hfa [Ventolin Hfa MDI] 90 mcg IH Q6H 03/03/21 [History] Diphenoxylate HCl/Atropine [Lomotil 2.5-0.025 mg Tablet] 1 each PO Q6H PRN PRN 03/03/21 [History] Meclizine HCl 25 mg [Antivert 25 mg] 25 mg PO TIDPRN PRN 03/03/21 [History] Omeprazole 20 mg PO BID PRN PRN 03/03/21 [History] lisinopriL [Lisinopril] 1 tab PO DAILY 03/03/21 [History] Hx Tetanus, Diphtheria Vaccination/Date Given: Yes Hx Influenza Vaccination/Date Given: Yes Hx Pneumococcal Vaccination/Date Given: Yes Travel Risk - International Travel Have you traveled outside of the country in past 3 weeks: No - Emerging Infectious Disease Are you exhibiting symptoms associated with any current EIDs: No - Review of Systems Constitutional: No Symptoms Eyes: No Symptoms Ears, Nose, & Throat: Ear Pain Respiratory: No Symptoms (Right side) Cardiac: No Symptoms Abdominal/Gastrointestinal: No Symptoms Genitourinary Symptoms: No Symptoms Musculoskeletal: No Symptoms Skin: Other (Small abscess dorsal aspect right second toe) Neurological: No Symptoms Psychological: No Symptoms Endocrine: No Symptoms Hematologic/Lymphatic: No Symptoms Immunological/Allergic: No Symptoms All Other Systems: Reviewed and Negative - Past Medical History Pertinent Past Medical History: Yes Neurological History: Stroke ENT History: Cataracts Cardiac History: High Cholesterol, Hypertension Respiratory History: COPD, Sleep Apnea, Other Endocrine Medical History: Diabetes Type II, Liver Disease, Other Musculoskeletal History: Osteoarthritis GI Medical History: GERD, Gallbladder Disease, GI Bleed, Hemorrhoids, Polyps History: Other Psycho-Social History: No Pertinent History Male Reproductive Disorders: Prostate Problems Other Medical History: ASBESTOS EXPOSURE, CKD STAGE 3. HX OF COVID - Past Surgical History Past Surgical History: Yes Neuro Surgical History: No Pertinent History Cardiac: Cardiac Catheterization Respiratory: No Pertinent History Gastrointestinal: Cholecystectomy, Hernia Repair Genitourinary: No Pertinent History Musculoskeletal: Orthopedic Surgery Male Surgical History: Vasectomy Other Surgical History: arthroscopy with cartilage removal of right knees,. surgery done on liver- infection trimmed off liver from complications from gallbadder removal. right ear drum/canal/ear bone surgery 03/01/16. triple hernia repair 1977 - Social History Smoking Status: Former smoker How long have you smoked: quit in 68 Exposure to second hand smoke: No Drug Use: none Patient Lives Alone: No - Nursing Vital Signs Nursing Vital Signs: Pain Scale Pain Intensity 5 - Physical Exam General Appearance: no apparent distress, alert, obese Eye Exam: PERRL/EOMI, eyes nml inspection Ears, Nose, Throat Exam: moist mucous membranes, TM abnormal (R) (With associated ear canal exudate) Neck Exam: normal inspection, non-tender, supple, full range of motion Respiratory Exam: airway intact, No chest tenderness, No respiratory distress Gastrointestinal/Abdomen Exam: No tenderness Rectal Exam: not done Back Exam: normal inspection, normal range of motion, No CVA tenderness, No vertebral tenderness Extremity Exam: normal range of motion, pelvis stable, tenderness (In the area of a tiny aspect dorsal aspect right second toe. No proximal streaking. Expressible pus, small amount) Neurologic Exam: alert, oriented x 3, cooperative, leather patcher II-XII nml as tested, normal mood/affect, nml cerebellar function, nml station & gait, sensation nml Skin Exam: normal color, warm, dry Lymphatic Exam: No adenopathy SpO2 Interpretation: normal O2 Delivery: Room Air - Course Nursing assessment & vital signs reviewed: Yes - Progress Progress: unchanged Progress Note: 09/15/24 16:57 My medical decision making and the assignment of low complexity to this patient's medical issue today is based on review of the patient's past medical history, review the patient's medication list, review the patient drug allergy list, history present illness and physical findings on examination. The workup does not require laboratory radiographic studies. Although I will send a culture and of the pus from the second toe right foot abscess. Differential diagnosis includes but is not limited to right ear otitis externa, right ear otitis media, abscess second toe right foot dorsal aspect Counseled pt/family regarding: diagnosis, need for follow-up Medical Desision Making - Diagnostic Testing Diagnostic test were ordered, analyzed, and reviewed by me: No - Risk of complications The pt has a mod risk of morbidity or mortality based on: Need for prescription drug management - Departure Departure Disposition: Home Clinical Impression: Right otitis media, Abscess of second toe, right Condition: Stable Critical Care Time: No Referrals: ASHISH TABARES [Primary Care Provider] - Follow up/PCP as directed Additional Instructions: Take your antibiotics and other medications as prescribed. Soak the right foot twice a day in warm soapy water or warm Epson salt water. Call your automotive mechanical engineer tomorrow, 09/16/2024, to make arrangements for follow-up appointment to be seen in the next 3 to 5 days. Prescriptions: Smz/Tmp Ds Tablet [Bactrim Ds Tablet] 1 udtab PO BID #14 tablet
[2024-09-15 17:10] VITALS: BP 160/85; O2SAT 95
== END 2024-09-15 17:15 | disposition home or self-care (01) ==
LOC: ED 16:39
DX: L02.611 Cutaneous abscess of right foot (principal); H66.91 Otitis media, unspecified, right ear; E78.5 Hyperlipidemia, unspecified; I12.9 Hypertensive chronic kidney disease with stage 1 through stage 4 chronic kidney disease, or unspecified chronic kidney disease; E11.22 Type 2 diabetes mellitus with diabetic chronic kidney disease; N18.30 Chronic kidney disease, stage 3 unspecified; Z79.4 Long term (current) use of insulin; Z79.899 Other long term (current) drug therapy
CPT/HCPCS: 87070; 99282; 99283